=== PATIENT | female | born 1980 | race Caucasian/White ===

== ENCOUNTER 2016-10-17 14:48 | Emergency (ER) | payer OTHER ==
[2016-10-17 14:53] VITALS: RESP 20
--- NOTE | 2016-10-17 15:21 | ED ---
Chest Pain HPI - General Chief Complaint: Chest Pain Stated Complaint: Chest Pain/Anxiety Time Seen by Provider: 10/17/16 15:05 Source: patient Mode of arrival: wheelchair Limitations: no limitations - History of Present Illness Initial Comments: Patient is a 35-year-old female presenting with chest pain. Patient states symptoms started 4 days ago. Points to anterior chest wall. Patient states is intermittent. Patient denies any radiation to arm, back, neck. Patient isn't taking anything for the pain. Patient states she has a heavy caseload at work. Patient has an outpatient follow-up with her PCP already for concerns of anxiety/depression. Patient denies diabetes, hypertension, hyperlipidemia, tobacco abuse, early family history of heart disease. Patient denies OCP use, recent travel/surgeries/trauma, cancer, history of DVT/PE. Patient has any fever, chills, stress breath, nausea, vomiting, diarrhea, dysuria. - Related Data Allergies Allergy/AdvReac Type Severity Reaction Status Date / Time No Known Allergies Allergy Verified 10/17/16 14:54 Review of Systems ROS Statement: Those systems with pertinent positive or pertinent negative responses have been documented in the HPI. Constitutional: No fever and no chills. HENT: No congestion, no rhinorrhea and no sore throat. Eyes: No discharge and no redness. Respiratory: No cough and no shortness of breath. Cardiovascular:+chest pain and no palpitations. Gastrointestinal: No nausea, no vomiting, no abdominal pain and no diarrhea. Genitourinary: No dysuria and no hematuria. Musculoskeletal: No back pain and no arthralgias. Skin: No pallor and no rash. Neurological: No dizziness and No headaches. ROS Other: All systems not noted in ROS Statement are negative. EKG Findings - EKG Comments: EKG Findings:: Rate 88. NSR. No ST-T wave changes. NE internal normal . QRS interval normal. QTc duration normal. Past Medical History Additional Past Medical History / Comment(s): overactive bladder, History of Any Multi-Drug Resistant Organisms: None Reported Past Surgical History: No Surgical Hx Reported Past Psychological History: Anxiety, Depression Smoking Status: Never smoker Past Alcohol Use History: None Reported Past Drug Use History: None Reported General Exam - General Exam Comments Initial Comments: Constitutional: Patient appears well-developed and well-nourished. No distress. Head: Normocephalic and atraumatic. Eyes: Conjunctivae and EOM are normal. Right eye exhibits no discharge. Left eye exhibits no discharge. No scleral icterus. Neck: Normal range of motion. Neck supple. Cardiovascular: Normal rate and regular rhythm. No murmur heard. No reproducible chest wall tenderness. Pulmonary/Chest: Effort normal and breath sounds normal. No respiratory distress. No wheezes. Abdominal: Soft. No distension. There is no tenderness. There is no rebound and no guarding. Musculoskeletal: Normal range of motion. No edema or tenderness. Neurological: Patient alert and oriented to person, place, and time. Skin: Skin is warm and dry. Not diaphoretic. Nursing notes and vitals reviewed. Limitations: no limitations Course Vital Signs 10/17/16 10/17/16 14:50 16:39 Temperature 97.5 F L 98.2 F Pulse Rate 100 71 Respiratory 20 20 Rate Blood Pressure 123/60 102/56 O2 Sat by Pulse 98 98 Oximetry - Reevaluation(s) Reevaluation #1: 10/17/16 16:56 Patient resting comfortably in bed. EKG and chest x-ray unremarkable and shared with patient. Patient agreeable to following up with her PCP. Chest Pain MDM - MDM Patient is a 35-year-old female without cardiac risk factors. PERC negative. EKG and chest x-ray unremarkable. Patient can follow up with her PCP for further management of her anxiety/depression. Patient denies suicidal, homicidal, or hallucinations. Prior to discharge, patient was resting comfortably in bed. Course of stay improved. Denies pain. Discussed physical exam and diagnostic tests with patient. Questions answered and patient is agreeable to discharge with close follow up with Primary Care Physician. Instructed to return to Emergency Department if symptoms worsen. Disposition Clinical Impression: Chest pain Disposition: HOME SELF-CARE Condition: Good Instructions: Chest Pain (ED), Stress (ED) Referrals: Hue Xie MD [Primary Care Provider] - 1-2 days
[2016-10-17 15:44] LABS: Appearance,Urine Cloudy (Clear); Bilirubin,Urine Negative (Negative); Glucose,Urine (UA) Negative (Negative); Ketones,Urine Negative (Negative); Leukocyte Esterase,Urine Negative (Negative); Mucus,Urine Occasional /hpf; Nitrite,Urine Negative (Negative); PH, Urine 6.5 (5.0-8.0); Particle Count 5755; Protein,Urine 1+ (Negative); RBC,Urine 11 /hpf (0-5); Specific Gravity,Urine 1.029 (1.001-1.035); Squamous Epithelial Cell,Urine 5 /hpf (0-4); UA Billing (MACRO vs. MICRO) MICRO; Urobilinogen,Urine <2.0 mg/dL (<2.0)
--- NOTE | 2016-10-17 16:11 | XR ---
EXAMINATION TYPE: XR chest 2V DATE OF EXAM: 10/17/2016 3:58 PM COMPARISON: NONE HISTORY: Chest pain TECHNIQUE: Frontal and lateral views of the chest are obtained. FINDINGS: Heart and mediastinum are normal. Lungs are clear. Diaphragm is normal. Bony thorax is int act. IMPRESSION: Normal chest.
[2016-10-17 16:39] VITALS: BP 102/56; PULSE 71; TEMP 98.2
== END 2016-10-17 16:56 | disposition home or self-care (01) ==
LOC: EC 14:48
DX: R07.89 Other chest pain (principal); F43.9 Reaction to severe stress, unspecified; F41.9 Anxiety disorder, unspecified; F32.9 Major depressive disorder, single episode, unspecified
CPT/HCPCS: 71020; 81001; 81025; 93005; 99285

== ENCOUNTER 2017-03-15 13:52 | Emergency (ER) | payer OTHER ==
[2017-03-15] MEDS ORDERED: SODIUM CHLORIDE 0.9% 1,000 ML IV ONE (16:05)
[2017-03-15 16:42] LABS: Appearance,Urine Cloudy (Clear); Bacteria,Urine Rare /hpf; Bilirubin,Urine Negative (Negative); Glucose,Urine (UA) Negative (Negative); Ketones,Urine Negative (Negative); Leukocyte Esterase,Urine Negative (Negative); Mucus,Urine Rare /hpf; Nitrite,Urine Negative (Negative); PH, Urine 5.5 (5.0-8.0); Particle Count 4451; Protein,Urine Negative (Negative); Specific Gravity,Urine 1.015 (1.001-1.035); Squamous Epithelial Cell,Urine 4 /hpf (0-4); UA Billing (MACRO vs. MICRO) MICRO; Urobilinogen,Urine <2.0 mg/dL (<2.0)
[2017-03-15 16:45] LABS: Basophils % (A) 0 %; CH 31.6; CHCM 35.1; Eosinophils # (A) 0.1 k/uL (0-0.7); Eosinophils % (A) 1 %; HCT 39.4 % (34.0-46.0); HDW 2.65; HGB 13.8 gm/dL (11.4-16.0); Luc # (Auto) 0.12; Luc % (Auto) 2; Lymphocytes # (A) 2.1 k/uL (1.0-4.8); Lymphocytes % (A) 37 %; MCH 31.5 pg (25.0-35.0); MCHC 34.9 g/dL (31.0-37.0); MCV 90.4 fL (80.0-100.0); Monocytes # (A) 0.3 k/uL (0-1.0); Monocytes % (A) 5 %; Neutrophils # (A) 3.1 k/uL (1.3-7.7); Neutrophils % (A) 54 %; RBC 4.36 m/uL (3.80-5.40); RDW 13.2 % (11.5-15.5); WBC 5.6 k/uL (3.8-10.6); WBC (Perox) 5.08
[2017-03-15 16:54] LABS: ALT 19 U/L (9-52); AST 22 U/L (14-36); Alkaline Phosphatase 66 U/L (38-126); Anion Gap 9 mmol/L; Blood Urea Nitrogen 15 mg/dL (7-17); Calcium 9.1 mg/dL (8.4-10.2); Carbon Dioxide 28 mmol/L (22-30); Chloride 103 mmol/L (98-107); Glucose 81 mg/dL (74-99); Non-African American GFR(MDRD) >60 (>60 ml/min/1.73 sqM); Sodium 140 mmol/L (137-145); Total Bilirubin 0.7 mg/dL (0.2-1.3); Total Protein 7.8 g/dL (6.3-8.2)
--- NOTE | 2017-03-15 17:03 | XR ---
EXAMINATION TYPE: XR chest 2V DATE OF EXAM: 03/15/2017 COMPARISON: Chest x-ray October 17, 2016 HISTORY: Chest pain per order. Pain with shortness of breath and extremity numbness and tingling afte r new vitamin ingestion per patient. TECHNIQUE: Frontal and lateral views of the chest are obtained. FINDINGS: There is no focal air space opacity, pleural effusion, or pneumothorax seen. The cardiac silhouette size is within normal limits. The osseous structures are intact. IMPRESSION: No acute cardiopulmonary process currently.
--- NOTE | 2017-03-15 17:12 | ED ---
General Adult HPI - General Chief complaint: Chest Pain Stated complaint: Tingling in arm/Legs Time Seen by Provider: 03/15/17 15:36 Source: patient Mode of arrival: ambulatory Limitations: no limitations - History of Present Illness Initial comments: Patient is a 36-year-old female with a past medical history of depression and overactive bladder who presents to the emergency department for evaluation of tingling sensation that began in her hands and feet yesterday and now is throughout her entire body. Patient reports that one week ago she discontinued her usual vitamin supplementations and begin using a food vitamin known is that Juice + orchard, garden and dexter blend capsule vitamin, which her friend report she began using and had significant improvement in her GI symptoms as well as depression. Patient reports in the first week of using the supplements she did feel that her overactive bladder was better controlled and she felt less depression. However she reports that yesterday she began feeling tingling sensation in her hands and feet. She was unsure if this was related to the supplements, however she reports she felt better in the afternoon. She reports that today she began experiencing the tingling sensation in her hands and feet but it moved throughout her entire body, that time she felt that her chest was tight and she was having trouble breathing. She was unsure if this was related to acid reflux so she ate lunch which did seem to improve the symptoms however she was advised by her supervisor [employer] worked that she should come to the emergency department for further evaluation. Patient reports she is taking 2 capsules of each of the supplements. One being orchard, one being dexter and one being garden. She received the supplements from her friend who had been taking them, she reports that she had ordered her own bottles but they have not arrived in the malleus of her friend had given her the supplements. She is not read the bottle is unsure of the ingredients and is uncertain if she may have an ALLERGY to any of them. She doesn't have any known food ALLERGIES. Patient denies any cardiac history. She denies any history of blood clots or family history of blood clot. She is not on oral contraceptives and she is not a smoker. She denies any exertional chest pain or shortness of breath. - Related Data Home Medications Medication Instructions Recorded Confirmed "Juice Plus" 1 cap PO DIRECTED 03/15/17 03/15/17 Cetirizine HCl [Zyrtec] 10 mg PO DAILY 03/15/17 03/15/17 Cholecalciferol [Vitamin D3] 1,000 unit PO DAILY 03/15/17 03/15/17 Oxybutynin ER [Ditropan Xl] 15 mg PO DAILY 03/15/17 03/15/17 Vitamin B Complex 1 cap PO DAILY 03/15/17 03/15/17 Allergies Allergy/AdvReac Type Severity Reaction Status Date / Time No Known Allergies Allergy Verified 03/15/17 15:19 Review of Systems ROS Statement: Those systems with pertinent positive or pertinent negative responses have been documented in the HPI. ROS Other: All systems not noted in ROS Statement are negative. Constitutional: Denies: fever, chills Eyes: Denies: vision change ENT: Denies: throat pain Respiratory: Reports: dyspnea. Denies: wheezes Cardiovascular: Denies: chest pain, dyspnea on exertion, orthopnea, edema, syncope Endocrine: Denies: fatigue Gastrointestinal: Denies: abdominal pain, nausea, vomiting, diarrhea, constipation Genitourinary: Reports: urgency. Denies: dysuria, hematuria Musculoskeletal: Denies: back pain Skin: Denies: rash Neurological: Reports: paresthesias. Denies: headache, weakness Psychiatric: Reports: anxiety, depression Hematological/Lymphatic: Denies: easy bleeding, easy bruising Past Medical History Additional Past Medical History / Comment(s): overactive bladder, History of Any Multi-Drug Resistant Organisms: None Reported Past Surgical History: No Surgical Hx Reported Past Psychological History: Anxiety, Depression Smoking Status: Never smoker Past Alcohol Use History: None Reported Past Drug Use History: None Reported General Exam Limitations: no limitations General appearance: alert, in no apparent distress Head exam: Present: atraumatic, normocephalic, normal inspection Eye exam: Present: normal appearance, PERRL, EOMI. Absent: scleral icterus, conjunctival injection, periorbital swelling ENT exam: Present: normal exam, mucous membranes moist Neck exam: Present: normal inspection. Absent: tenderness, meningismus, lymphadenopathy Respiratory exam: Present: normal lung sounds bilaterally. Absent: respiratory distress, wheezes, rales, rhonchi, stridor, chest wall tenderness, accessory muscle use, decreased breath sounds, prolonged expiratory Cardiovascular Exam: Present: regular rate, normal rhythm, normal heart sounds. Absent: bradycardia, tachycardia, irregular rhythm, systolic murmur, diastolic murmur GI/Abdominal exam: Present: soft, normal bowel sounds. Absent: distended, tenderness, guarding, rebound, rigid Rectal exam: Present: deferred Extremities exam: Present: normal inspection, full ROM, normal capillary refill. Absent: tenderness, pedal edema, joint swelling, calf tenderness Back exam: Present: normal inspection Neurological exam: Present: alert, oriented X3, CN II-XII intact. Absent: altered Psychiatric exam: Present: depressed, anxious. Absent: manic, homicidal ideation, suicidal ideation Skin exam: Present: warm, dry, intact, normal color. Absent: rash, erythema, urticaria, vesicles, petechiae, pallor Course Vital Signs 03/15/17 14:07 Temperature 98.3 F Pulse Rate 83 Respiratory 20 Rate Blood Pressure 125/58 O2 Sat by Pulse 100 Oximetry - Reevaluation(s) Reevaluation #1: Patient reevaluated, resting comfortably in bed. She states that she is feeling significantly better and would like to be discharged she has a social event at 7 PM tonight. Patient also expresses concern that her medical advanced directive have not been uploaded to this [facility]'s documentation, she is a [employer] and once it clear that she would not receive blood products in any situation. 03/15/17 17:08 Medical Decision Making - Medical Decision Making She was seen and evaluated, vital signs were reviewed - no tachycardia, PERC negative EKG done in triage was reviewed Physical exam no acute findings, no concern for wheezing or acute ALLERGIC reaction She reports significant improvement in symptoms since arrival in the ER Labs, chest x-ray ordered CBC and BMP with no acute abnormalities D-dimer not elevated Results were discussed with the patient who expresses relief. I advised patient that it is possible she is having an adverse reaction to the supplements she has began taking. I advised her that it would be safest for her to discontinue use of all 3 supplements and if she has resolution of her symptoms after discontinued use she should consider restarting the supplements one at a time so that she can identify which if any of them is causing the symptoms. Patient expressed understanding of this and agreement with the plan to discontinue supplementation and reintroduce shortly. And also states that she has had sensitivities to almost all medications she has been on in the past , she reports that her primary care physician has had 2 change her antidepressants multiple times due to adverse effects. - Lab Data Result diagrams: 03/15/17 16:30 03/15/17 16:30 Lab Results 03/15/17 03/15/17 03/15/17 Range/Units 16:20 16:20 16:30 WBC 5.6 (3.8-10.6) k/uL RBC 4.36 (3.80-5.40) m/uL Hgb 13.8 (11.4-16.0) gm/dL Hct 39.4 (34.0-46.0) % MCV 90.4 (80.0-100.0) fL MCH 31.5 (25.0-35.0) pg MCHC 34.9 (31.0-37.0) g/dL RDW 13.2 (11.5-15.5) % Plt Count 234 (150-450) k/uL Neutrophils % 54 % Lymphocytes % 37 % Monocytes % 5 % Eosinophils % 1 % Basophils % 0 % Neutrophils # 3.1 (1.3-7.7) k/uL Lymphocytes # 2.1 (1.0-4.8) k/uL Monocytes # 0.3 (0-1.0) k/uL Eosinophils # 0.1 (0-0.7) k/uL Basophils # 0.0 (0-0.2) k/uL Sodium (137-145) mmol/L Potassium (3.5-5.1) mmol/L Chloride (98-107) mmol/L Carbon Dioxide (22-30) mmol/L Anion Gap mmol/L BUN (7-17) mg/dL Creatinine (0.52-1.04) mg/dL Est GFR (MDRD) Af Amer (>60 ml/min/1.73 sqM) Est GFR (MDRD) Non-Af (>60 ml/min/1.73 sqM) Glucose (74-99) mg/dL Calcium (8.4-10.2) mg/dL Total Bilirubin (0.2-1.3) mg/dL AST (14-36) U/L ALT (9-52) U/L Alkaline Phosphatase (38-126) U/L Total Protein (6.3-8.2) g/dL Albumin (3.5-5.0) g/dL Urine Color Yellow Urine Appearance Cloudy H (Clear) Urine pH 5.5 (5.0-8.0) Ur Specific [place] 1.015 (1.001-1.035) Urine Protein Negative (Negative) Urine Glucose (UA) Negative (Negative) Urine Ketones Negative (Negative) Urine Blood Negative (Negative) Urine Nitrite Negative (Negative) Urine Bilirubin Negative (Negative) Urine Urobilinogen <2.0 (<2.0) mg/dL Ur Leukocyte Esterase Negative (Negative) Ur Squamous Epith Cells 4 (0-4) /hpf Urine Bacteria Rare H (None) /hpf Urine Mucus Rare H (None) /hpf Urine HCG, Qual Not Detected (Not Detectd) 03/15/17 Range/Units 16:30 WBC (3.8-10.6) k/uL RBC (3.80-5.40) m/uL Hgb (11.4-16.0) gm/dL Hct (34.0-46.0) % MCV (80.0-100.0) fL MCH (25.0-35.0) pg MCHC (31.0-37.0) g/dL RDW (11.5-15.5) % Plt Count (150-450) k/uL Neutrophils % % Lymphocytes % % Monocytes % % Eosinophils % % Basophils % % Neutrophils # (1.3-7.7) k/uL Lymphocytes # (1.0-4.8) k/uL Monocytes # (0-1.0) k/uL Eosinophils # (0-0.7) k/uL Basophils # (0-0.2) k/uL Sodium 140 (137-145) mmol/L Potassium 4.0 (3.5-5.1) mmol/L Chloride 103 (98-107) mmol/L Carbon Dioxide 28 (22-30) mmol/L Anion Gap 9 mmol/L BUN 15 (7-17) mg/dL Creatinine 0.79 (0.52-1.04) mg/dL Est GFR (MDRD) Af Amer >60 (>60 ml/min/1.73 sqM) Est GFR (MDRD) Non-Af >60 (>60 ml/min/1.73 sqM) Glucose 81 (74-99) mg/dL Calcium 9.1 (8.4-10.2) mg/dL Total Bilirubin 0.7 (0.2-1.3) mg/dL AST 22 (14-36) U/L ALT 19 (9-52) U/L Alkaline Phosphatase 66 (38-126) U/L Total Protein 7.8 (6.3-8.2) g/dL Albumin 4.6 (3.5-5.0) g/dL Urine Color Urine Appearance (Clear) Urine pH (5.0-8.0) Ur Specific [place] (1.001-1.035) Urine Protein (Negative) Urine Glucose (UA) (Negative) Urine Ketones (Negative) Urine Blood (Negative) Urine Nitrite (Negative) Urine Bilirubin (Negative) Urine Urobilinogen (<2.0) mg/dL Ur Leukocyte Esterase (Negative) Ur Squamous Epith Cells (0-4) /hpf Urine Bacteria (None) /hpf Urine Mucus (None) /hpf Urine HCG, Qual (Not Detectd) Disposition Clinical Impression: Atypical chest pain, Medication reaction Disposition: HOME SELF-CARE Instructions: Food Allergy (ED) Referrals: Hue Xie MD [Primary Care Provider] - 1-2 days
[2017-03-15 17:51] VITALS: BP 107/55; PULSE 64; RESP 18; TEMP 98.6
== END 2017-03-15 17:51 | disposition home or self-care (01) ==
LOC: EC 13:52
DX: R07.89 Other chest pain (principal); R20.2 Paresthesia of skin; F32.9 Major depressive disorder, single episode, unspecified; T45.2X5A Adverse effect of vitamins, initial encounter; N32.81 Overactive bladder; F41.9 Anxiety disorder, unspecified; Z79.899 Other long term (current) drug therapy
CPT/HCPCS: 36415; 71020; 80053; 81001; 81025; 85025; 85379; 93005; 96360; 99285

== ENCOUNTER → 2017-03-24 | Outpatient (CLI) | payer OTHER ==
[2017-03-24 09:07] LABS: ALT 29 U/L (9-52); AST 18 U/L (14-36); Alkaline Phosphatase 57 U/L (38-126); Anion Gap 8 mmol/L; Blood Urea Nitrogen 11 mg/dL (7-17); Calcium 8.8 mg/dL (8.4-10.2); Carbon Dioxide 27 mmol/L (22-30); Chloride 106 mmol/L (98-107); Glucose 91 mg/dL (74-99); Magnesium 2.1 mg/dL (1.6-2.3); Non-African American GFR(MDRD) >60 (>60 ml/min/1.73 sqM); Potassium 4.1 mmol/L (3.5-5.1); Sodium 141 mmol/L (137-145); Total Bilirubin 1.4 mg/dL (0.2-1.3)
== END | disposition home or self-care (01) ==
LOC: LABWHC1 08:18
PROVIDERS: ATTEND Family Medicine
DX: E66.3 Overweight (principal)
CPT/HCPCS: 36415; 80053; 83735

== ENCOUNTER 2018-06-02 14:00 | Inpatient (IN) | payer BC, OTHER ==
[2018-06-02] MEDS ORDERED: cefTRIAXone 2,000 MG in SODIUM CHLORIDE 0.9% 100 ML IVPB STA (14:22)
[2018-06-02] MEDS ORDERED: SODIUM CHLORIDE 0.9% 1,000 ML IV ONE (14:22)
--- NOTE | 2018-06-02 14:26 | ED ---
Skin/Abscess/FB HPI - General Chief complaint: Skin/Abscess/Foreign Body Stated complaint: poss bee sting Time Seen by Provider: 06/02/18 14:06 Source: patient Mode of arrival: ambulatory Limitations: no limitations - History of Present Illness Initial comments: 37-year-old female who denies past medical history, patient denies any past medical history of MRSA infection present today for chief complaint of left buttock abscess incised illness with failed outpatient treatment. Patient states that she was sent by her primary care physician spoke with Dr. Tran over the phone. Patient was bit by an insect she states about 1.5 weeks ago then diagnosed on Wednesday with cellulitis and abscess of the left buttock at the area of puncture in the skin from insect bite. She is not sure what type of insect it was. She was started on Bactrim q12h. Pt states that she did not fill prescription on Wednesday at the time of appointment, and began taking the medication starting Wednesday as directed. Pt took only 1 dose yesterday because she states she forgot when she got home from work. Pt states that the redness has been increasing and the area is draining fluid/blood, she she saw Dr. Xie for wound check today, he felt infection was worsening and instructed pt to present to the ED for IV antibiotic therapy. She denies any fever, chills, rigors, night sweats, body aches, chest pain, shortness of breath, diarrhea, constipation, back pain, abdominal pain, nausea or vomiting, numbness or tingling, dysuria or hematuria, headaches or visual changes, or any other complaints. - Related Data Home Medications Medication Instructions Recorded Confirmed "Juice Plus" 1 cap PO DIRECTED 03/15/17 06/02/18 Cetirizine HCl [Zyrtec] 10 mg PO DAILY 03/15/17 06/02/18 Cholecalciferol [Vitamin D3] 1,000 unit PO DAILY 03/15/17 06/02/18 Oxybutynin ER [Ditropan Xl] 15 mg PO DAILY 03/15/17 06/02/18 Vitamin B Complex 1 cap PO DAILY 03/15/17 06/02/18 Allergies Allergy/AdvReac Type Severity Reaction Status Date / Time No Known Allergies Allergy Verified 06/02/18 14:11 Review of Systems ROS Statement: Those systems with pertinent positive or pertinent negative responses have been documented in the HPI. ROS Other: All systems not noted in ROS Statement are negative. Constitutional: Denies: fever, chills, night sweats Eyes: Denies: vision change ENT: Denies: ear pain, throat pain Respiratory: Denies: cough, dyspnea, wheezes, hemoptysis, stridor Cardiovascular: Denies: chest pain, palpitations, dyspnea on exertion Endocrine: Denies: fatigue Gastrointestinal: Denies: abdominal pain, nausea, vomiting, diarrhea, constipation Genitourinary: Denies: frequency, hematuria Musculoskeletal: Denies: back pain Skin: Reports: as per HPI, lesions (break in skin with surrounding induration and erythema) Neurological: Denies: headache, weakness, numbness, paresthesias, confusion, abnormal gait Past Medical History Additional Past Medical History / Comment(s): overactive bladder, History of Any Multi-Drug Resistant Organisms: None Reported Past Surgical History: No Surgical Hx Reported Past Psychological History: Anxiety, Depression Smoking Status: Never smoker Past Alcohol Use History: None Reported Past Drug Use History: None Reported General Exam - General Exam Comments Initial Comments: General: The patient is awake and alert, in no distress, and does not appear acutely ill. Eye: Pupils are equal, round and reactive to light, extra-ocular movements are intact. No nystagmus. There is normal conjunctiva bilaterally. No signs of icterus. Ears, nose, mouth and throat: There are moist mucous membranes and no oral lesions. Neck: The neck is supple, there is no tenderness or JVD. Cardiovascular: There is a regular rate and rhythm. No murmur, rub or gallop is appreciated. Respiratory: Lungs are clear to auscultation, respirations are non-labored, breath sounds are equal. No wheezes, stridor, rales, or rhonchi. Gastrointestinal: Soft, non-distended, non-tender abdomen without masses or organomegaly noted. There is no rebound or guarding present. No CVA tenderness. Bowel sounds are unremarkable. Musculoskeletal: Normal ROM, no tenderness. Strength 5/5. Sensation intact. Pulses equal bilaterally 2+. Neurological: A&O x 3. CN II-XII intact, There are no obvious motor or sensory deficits. Coordination appears grossly intact. Speech is normal. Skin: Skin is warm and dry and no rashes or lesions are noted. Psychiatric: Cooperative, appropriate mood & affect, normal judgment. Limitations: no limitations Course Vital Signs 06/02/18 06/02/18 14:07 15:19 Temperature 98.8 F 98.8 F Pulse Rate 89 88 Respiratory 18 18 Rate Blood Pressure 135/74 132/77 O2 Sat by Pulse 98 98 Oximetry Medical Decision Making - Medical Decision Making 37yo dx with cellulitis and abscess of the left buttock sent by PCP for failed outpatient treatment with Bactrim x2 days. Pt complains of worsening erythema warmth and tenderness. Pt denies any symptoms of systemic spread of infection. VS stable upon arrive pt HR 89 bpm, temperature 98.8F, blood pressure 135 /74. CBC, Lactic- WNL. Blood cx and wound cx obtained after needle aspiration of area of induration-both pending. Pt given 2g rocephin IVPB as well as 0.9% NS 1, 000 mL. Case discussed with Dr. Tran, pt primary care physician had wanted admission for IV antibiotics for failed outpt therapy for cellulitis with abscess. Ashley accepted admission to observation for intravenous antibiotic therapy after discussing case with Dr. Tran. Pt appears nontoxic, no signs sepsis at this time. Pt transferred to observation in stable condition. - Lab Data Result diagrams: 06/02/18 14:30 06/02/18 14:30 Lab Results 06/02/18 06/02/18 06/02/18 Range/Units 14:30 14:30 14:30 WBC 8.5 (3.8-10.6) k/uL RBC 4.04 (3.80-5.40) m/uL Hgb 12.1 (11.4-16.0) gm/dL Hct 37.1 (34.0-46.0) % MCV 91.9 (80.0-100.0) fL MCH 30.1 (25.0-35.0) pg MCHC 32.7 (31.0-37.0) g/dL RDW 13.2 (11.5-15.5) % Plt Count 235 (150-450) k/uL Neutrophils % 81 % Lymphocytes % 12 % Monocytes % 5 % Eosinophils % 1 % Basophils % 0 % Neutrophils # 6.9 (1.3-7.7) k/uL Lymphocytes # 1.1 (1.0-4.8) k/uL Monocytes # 0.4 (0-1.0) k/uL Eosinophils # 0.1 (0-0.7) k/uL Basophils # 0.0 (0-0.2) k/uL Sodium 141 (137-145) mmol/L Potassium 4.2 (3.5-5.1) mmol/L Chloride 107 (98-107) mmol/L Carbon Dioxide 24 (22-30) mmol/L Anion Gap 10 mmol/L BUN 15 (7-17) mg/dL Creatinine 0.72 (0.52-1.04) mg/dL Est GFR (CKD-EPI)AfAm >90 (>60 ml/min/1.73 sqM) Est GFR (CKD-EPI)NonAf >90 (>60 ml/min/1.73 sqM) Glucose 86 (74-99) mg/dL Plasma Lactic Acid [place] 0.9 (0.7-2.0) mmol/L Calcium 8.9 (8.4-10.2) mg/dL Total Bilirubin 1.1 (0.2-1.3) mg/dL AST 20 (14-36) U/L ALT 23 (9-52) U/L Alkaline Phosphatase 60 (38-126) U/L Total Protein 7.2 (6.3-8.2) g/dL Albumin 4.3 (3.5-5.0) g/dL Disposition Clinical Impression: Failure of outpatient treatment, Cellulitis and abscess of buttock Disposition: ADMITTED IP TO THIS [facility] Condition: Good Is patient prescribed a controlled substance at d/c from ED?: No Time of Disposition: 14:26 Decision to Admit Reason: Admit from EC Decision Date: 06/02/18 Decision Time: 14:26
[2018-06-02 14:49] LABS: Basophils % (A) 0 %; Eosinophils # (A) 0.1 k/uL (0-0.7); Eosinophils % (A) 1 %; HCT 37.1 % (34.0-46.0); HGB 12.1 gm/dL (11.4-16.0); Lymphocytes # (A) 1.1 k/uL (1.0-4.8); Lymphocytes % (A) 12 %; MCH 30.1 pg (25.0-35.0); MCHC 32.7 g/dL (31.0-37.0); MCV 91.9 fL (80.0-100.0); Mean Platelet Volume 7.7; Monocytes # (A) 0.4 k/uL (0-1.0); Monocytes % (A) 5 %; Neutrophils # (A) 6.9 k/uL (1.3-7.7); Neutrophils % (A) 81 %; Platelet Count 235 k/uL (150-450); RBC 4.04 m/uL (3.80-5.40); RDW 13.2 % (11.5-15.5); WBC 8.5 k/uL (3.8-10.6)
[2018-06-02] MEDS ORDERED: NALOXONE 0.4 MG/ML 1 ML VIAL IV PRN (14:55)
[2018-06-02] MEDS ORDERED: ONDANSETRON 4 MG/2 ML VIAL IVP PRN (14:55)
[2018-06-02 15:02] LABS: ALT 23 U/L (9-52); AST 20 U/L (14-36); Albumin 4.3 g/dL (3.5-5.0); Alkaline Phosphatase 60 U/L (38-126); Anion Gap 10 mmol/L; Blood Urea Nitrogen 15 mg/dL (7-17); Calcium 8.9 mg/dL (8.4-10.2); Carbon Dioxide 24 mmol/L (22-30); Chloride 107 mmol/L (98-107); Glucose 86 mg/dL (74-99); Potassium 4.2 mmol/L (3.5-5.1); Sodium 141 mmol/L (137-145); Total Bilirubin 1.1 mg/dL (0.2-1.3); Total Protein 7.2 g/dL (6.3-8.2)
[2018-06-02] MEDS: SODIUM CHLORIDE 0.9% 1,000 ML IV SCH (16:04)
[2018-06-02] MEDS: HYDROcodone/APAP 5-325MG 1 EACH TAB PO PRN (20:15)
[2018-06-02] MEDS: IBUPROFEN 400 MG TAB PO PRN (22:12)
[2018-06-03] MEDS: IBUPROFEN 400 MG TAB PO PRN ×2 (07:34→12:36)
[2018-06-03] MEDS: OXYBUTYNIN 15 MG TAB.ER.24 PO SCH (09:15)
[2018-06-03] MEDS: MULTIVITAMINS, THERA 1 EACH TAB PO SCH (09:15)
[2018-06-03] MEDS: LORATADINE 10 MG TAB PO SCH (09:15)
[2018-06-03] MEDS: CHOLECALCIFEROL 1,000 UNIT TAB PO SCH (09:15)
[2018-06-03] MEDS: FLUTICASONE 50MCG/SPRAY NASAL 16GM EA NOSTRIL SCH (09:15)
[2018-06-03 10:07] LABS: Basophils % (A) 0 %; Eosinophils # (A) 0.1 k/uL (0-0.7); Eosinophils % (A) 1 %; HCT 34.7 % (34.0-46.0); HGB 11.6 gm/dL (11.4-16.0); Lymphocytes # (A) 1.2 k/uL (1.0-4.8); Lymphocytes % (A) 17 %; MCH 30.2 pg (25.0-35.0); MCHC 33.4 g/dL (31.0-37.0); MCV 90.3 fL (80.0-100.0); Mean Platelet Volume 7.7; Monocytes # (A) 0.4 k/uL (0-1.0); Monocytes % (A) 6 %; Neutrophils % (A) 74 %; Platelet Count 230 k/uL (150-450); RBC 3.84 m/uL (3.80-5.40); WBC 6.8 k/uL (3.8-10.6)
[2018-06-03 10:24] LABS: ALT 17 U/L (9-52); AST 18 U/L (14-36); Albumin 3.7 g/dL (3.5-5.0); Alkaline Phosphatase 50 U/L (38-126); Anion Gap 9 mmol/L; Blood Urea Nitrogen 17 mg/dL (7-17); Calcium 8.6 mg/dL (8.4-10.2); Carbon Dioxide 24 mmol/L (22-30); Chloride 106 mmol/L (98-107); Glucose 83 mg/dL (74-99); Potassium 4.5 mmol/L (3.5-5.1); Sodium 139 mmol/L (137-145); Total Protein 6.5 g/dL (6.3-8.2)
--- NOTE | 2018-06-03 11:31 | P.HPIM ---
History of Present Illness H&P Date: 06/03/18 This is a 37-year-old female patient of Dr. Xie. Patient presented to the emergency department with complaints of left buttock abscess that has failed outpatient treatment. Patient states approximately about 1-1/2 week ago patient was outside mowing the lawn when she felt a sting to her right buttock. Patient went to her PCP and was treated with Bactrim at the site has been becoming increasingly painful and drainage has increased over the past week. Patient returned her PCP. PCP directed her to come to emergency room due to increasing infection. Patient has known past medical history of overactive bladder, anxiety and depression. Patient denies any fevers. Patient denies any ideations chest pain or shortness of breath. Patient denies diarrhea nausea or vomiting. Patient denies any urinary burning or frequency. Patient remains afebrile. White blood cells within normal limits. Blood and wound cultures have been ordered. Patient started on Rocephin IV. Dr. Rose consulted for infectious disease. 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 has a pt advocate form on file but stated she needs to change and update it.at time of this admit pt stated "she wishes no blood or blood products which is different from her form"" Smoking Status: Former smoker - Past Family History Mother Additional Family Medical History / Comment(s): schizophrenia, parkinsons Sister(s) Additional Family Medical History / Comment(s): overacative bladder Brother(s) Additional Family Medical History / Comment(s): bipolar Father Family Medical History: No Reported History Medications and Allergies Home Medications Medication Instructions Recorded Confirmed Type Cetirizine HCl [Zyrtec] 10 mg PO DAILY 03/15/17 06/02/18 History Cholecalciferol [Vitamin D3] 1,000 unit PO DAILY 03/15/17 06/02/18 History Oxybutynin ER [Ditropan Xl] 30 mg PO DAILY 03/15/17 06/02/18 History Vitamin B Complex 1 cap PO DAILY 03/15/17 06/02/18 History Fluticasone Nasal [place] [Flonase 1 spray EA NOSTRIL DAILY 06/02/18 06/02/18 History Nasal [place]] Multivitamins, Thera [Multivitamin 1 tab PO DAILY 06/02/18 06/02/18 History (formulary)] Sulfamethox-Tmp 800-160Mg [Bactrim 1 tab PO BID 06/02/18 06/02/18 History DS 800-160 mg] Allergies Allergy/AdvReac Type Severity Reaction Status Date / Time cat dander Allergy Unknown Verified 06/02/18 16:16 ragweed pollen Allergy Unknown Verified 06/02/18 16:16 Physical Exam Vitals: Vital Signs Temp Pulse Pulse Resp BP BP BP 06/03/18 07:58 71 16 06/03/18 07:35 98.1 F 71 18 94/60 06/03/18 04:00 98.0 F 71 16 98/64 06/02/18 23:44 16 06/02/18 23:43 99.5 F 88 16 93/56 06/02/18 20:00 16 06/02/18 15:47 97.9 F 97 16 100/64 06/02/18 15:19 98.8 F 88 18 132/77 06/02/18 14:07 98.8 F 89 18 135/74 Pulse Ox 06/03/18 07:58 06/03/18 07:35 98 06/03/18 04:00 99 06/02/18 23:44 06/02/18 23:43 97 06/02/18 20:00 06/02/18 15:47 100 06/02/18 15:19 98 06/02/18 14:07 98 Intake and Output 06/02/18 06/03/18 06/03/18 22:59 06:59 14:59 Intake Total 420 236 Balance 420 236 Intake: Oral 420 236 Other: Voiding Method Toilet Toilet Toilet # Voids 1 3 1 Weight 68.5 kg Head normocephalic Neck supple Lungs clear to auscultation bilaterally no wheezing or crackles Heart regular rate and rhythm S1-S2, no rub or gallop Abdomen is soft nontender nondistended positive bowel sounds no hepatosplenomegaly Extremities no edema Neuro alert and orientated to 3 Right lower buttock erythematous draining wound. Results CBC & Chem 7: 06/03/18 09:40 06/03/18 09:40 Labs: Microbiology - Last 24 Hours (Table) 06/02/18 14:48 Gram Stain - Preliminary Buttock Wound Culture - Preliminary Assessment and Plan Assessment: 1. Cellulitis to right buttock related to bug bite. Blood and wound cultures ordered. Patient remains afebrile. White blood cell within normal limits. Patient currently on Rocephin for IV antibiotics. Dr. Rose consulted for infectious disease 2. History of overactive bladder. Continue ditropan 3. History of anxiety and depression 4. Seasonal ALLERGIES. Continue home medications DVT prophylaxis Lovenox. GI prophylaxis Pepcid Time with Patient: Greater than 30 (Greater than 60% of the total time spent in counseling and coordination of care. I performed an examination of the patient and discussed their management with the Nurse Practitioner. I have reviewed the Nurse Practitioner's notes and agree with the documented findings and plan of care)
[2018-06-03] MEDS ORDERED: VANCOMYCIN IV PER PHARMACY 1 EACH MISC MISCELLANE PRN (12:57)
[2018-06-03] MEDS ORDERED: VANCOMYCIN 1,250 MG in SODIUM CHLORIDE 0.9% 250 ML IVPB ONE (14:00)
[2018-06-03] MEDS: SODIUM CHLORIDE 0.9% 1,000 ML IV SCH ×2 (16:38→16:39)
--- NOTE | 2018-06-03 20:14 | CONS ---
CONSULTATION DATE OF SERVICE: 06/03/2018. REASON FOR CONSULTATION: Left gluteal abscess. HISTORY OF PRESENT ILLNESS: The patient is a 37-year-old female who apparently noticed about a week and a half ago to have some area of irritation to the left gluteal area. The patient states that she was mowing the lawn and did have the jeans on, but more likely an insect bite. That area started getting more swollen, red and painful and she went to see her primary care physician. The patient has been started on Bactrim DS 1 b.i.d. which the patient has taken for about 3 days. However, the patient did not have any improvement of the area becoming more swollen, red and painful. Pain described as throbbing almost 10/10 and severe. The patient denies any high-grade fevers, rigors and chills. With these symptoms, the patient did present back to her primary care physician who advised the patient to go to the ER. The patient was evaluated by the ER physician with attempted drainage of this abscess. The patient has been started on Rocephin and admitted to the hospital. Infectious Disease was consulted for further recommendation regarding antibiotic therapy. The patient has been in the hospital. No high-grade fever has been noticed. The patient's white count has been normal as well. The left buttock wound culture currently pending as well blood culture. REVIEW OF SYSTEMS: CONSTITUTIONAL: Positive for weakness. Denies high-grade fever. EYES: No complaint. ENT: No complaint. RESPIRATORY: No complaint. CARDIOVASCULAR: No complaint. GENITOURINARY: No complaint. GASTROINTESTINAL: No complaint. MUSCULOSKELETAL: No complaint. INTEGUMENTARY: As per HPI. PSYCHOLOGICAL: No complaint. ENDOCRINE: No complaint. NEUROLOGIC: No complaint. PAST MEDICAL HISTORY: Overactive bladder and depression. No history of MRSA infection. PAST SURGICAL HISTORY: Cryosurgery for HPV. SOCIAL HISTORY: Remote history of smoking. No drinking or drug use. FAMILY HISTORY: Mother with history of parkinsonism. Mother history of bipolar disorder. ALLERGIES: No known drug allergies. MEDICATION: Currently include the patient is on Tylenol, [place], vitamin D3, Lovenox, Pepcid, Flonase, Motrin, Claritin, Theragran, Narcan, Zofran, Ditropan and Rocephin 1 g daily. EXAMINATION: Blood pressure is 94/60 with a pulse of 71, temperature 98.1. She is 98% on room air. General description is a middle aged female, lying in bed in no distress. No tachypnea or accessory muscle of respiration use. HEENT: Shows no pallor or scleral icterus. Oral mucosa is dry. No pharyngeal erythema or thrush. NECK: Trachea central. There is no thyromegaly. LUNGS: Unlabored breathing. Clear to auscultation anteriorly. No wheeze or crackle. HEART: S1, S2 regular rate and rhythm. ABDOMEN: Soft, no tenderness. No guarding, no rigidity. EXTREMITIES: No edema of the feet. SKIN: Examination of the left gluteal area the presence of the manager of case management did show an area of induration with some swelling and redness. No purulence was noted though tender to touch. NEUROLOGICAL: Patient is awake, alert, oriented x3. Mood and affect normal. LABS: Hemoglobin is 11.8, white count 6.8 with a BUN of 17, creatinine 0.80. The blood culture as well as the left gluteal abscess culture currently pending. DIAGNOSTIC IMPRESSION AND PLAN: Patient with left gluteal abscess and cellulitis that has failed to respond to the outpatient oral Bactrim DS therapy. Concern is likely for an MRSA infection and more likely superficial abscess, less likely a deep abscess in view of the absence of systemic symptoms. PLAN: 1. Discontinue the Rocephin. 2. Vancomycin, pharmacy to dose target of 15. 3. Patient advised warm compression in this area and let it drain spontaneously. 4. If the patient did not show any improvement the next 24 hours she may benefit from a surgical drainage of the same. 5. We will follow up on clinical condition as well as cultures to further adjust medication if needed. Thank you for this consultation. Will follow this patient along with you. MMODL / IJN: [id number] /
[2018-06-04] MEDS: VANCOMYCIN 1,250 MG in SODIUM CHLORIDE 0.9% 250 ML IVPB SCH ×3 (00:11→20:04)
[2018-06-04] MEDS: HYDROcodone/APAP 5-325MG 1 EACH TAB PO PRN ×2 (00:12→04:53)
[2018-06-04 07:57] LABS: Basophils % (A) 1 %; Eosinophils # (A) 0.1 k/uL (0-0.7); Eosinophils % (A) 1 %; HCT 34.2 % (34.0-46.0); Lymphocytes # (A) 0.9 k/uL (1.0-4.8); Lymphocytes % (A) 19 %; MCH 29.8 pg (25.0-35.0); MCHC 32.3 g/dL (31.0-37.0); MCV 92.2 fL (80.0-100.0); Mean Platelet Volume 7.1; Monocytes # (A) 0.3 k/uL (0-1.0); Monocytes % (A) 6 %; Neutrophils # (A) 3.3 k/uL (1.3-7.7); Neutrophils % (A) 72 %; Platelet Count 229 k/uL (150-450); RBC 3.71 m/uL (3.80-5.40); WBC 4.6 k/uL (3.8-10.6)
[2018-06-04 08:16] LABS: ALT 17 U/L (9-52); AST 17 U/L (14-36); Albumin 3.3 g/dL (3.5-5.0); Alkaline Phosphatase 45 U/L (38-126); Anion Gap 5 mmol/L; Blood Urea Nitrogen 13 mg/dL (7-17); Calcium 8.4 mg/dL (8.4-10.2); Carbon Dioxide 27 mmol/L (22-30); Chloride 106 mmol/L (98-107); Glucose 123 mg/dL (74-99); Sodium 138 mmol/L (137-145); Total Bilirubin 0.6 mg/dL (0.2-1.3); Total Protein 6.1 g/dL (6.3-8.2)
[2018-06-04] MEDS: MULTIVITAMINS, THERA 1 EACH TAB PO SCH (09:51)
[2018-06-04] MEDS: LORATADINE 10 MG TAB PO SCH (09:51)
[2018-06-04] MEDS: FAMOTIDINE 20 MG TAB PO SCH (09:51)
[2018-06-04] MEDS: OXYBUTYNIN 15 MG TAB.ER.24 PO SCH (09:51)
[2018-06-04] MEDS: CHOLECALCIFEROL 1,000 UNIT TAB PO SCH (09:51)
[2018-06-04] MEDS: SODIUM CHLORIDE 0.9% 1,000 ML IV SCH (09:52)
[2018-06-04] MEDS: ENOXAPARIN 40 MG/0.4 ML SYRINGE SQ SCH (09:53)
[2018-06-04] MEDS: FLUTICASONE 50MCG/SPRAY NASAL 16GM EA NOSTRIL SCH (10:54)
[2018-06-04] MEDS: ACETAMINOPHEN TAB 325 MG TAB PO PRN ×2 (13:24→23:35)
--- NOTE | 2018-06-04 14:52 | P.PN ---
Subjective Progress Note Date: 06/04/18 This is a 37-year-old female patient of Dr. Xie. Patient presented to the emergency department with complaints of left buttock abscess that has failed outpatient treatment. Patient states approximately about 1-1/2 week ago patient was outside mowing the lawn when she felt a sting to her right buttock. Patient went to her PCP and was treated with Bactrim at the site has been becoming increasingly painful and drainage has increased over the past week. Patient returned her PCP. PCP directed her to come to emergency room due to increasing infection. Patient has known past medical history of overactive bladder, anxiety and depression. Patient denies any fevers. Patient denies any ideations chest pain or shortness of breath. Patient denies diarrhea nausea or vomiting. Patient denies any urinary burning or frequency. Patient remains afebrile. White blood cells within normal limits. Blood and wound cultures have been ordered. Patient started on Rocephin IV. Dr. Rose consulted for infectious disease. On 2017 patient was seen and examined she is alert and oriented 3 pain is reasonably well controlled otherwise she denies any complaints she was seen by Dr. Balderrama infectious disease today and he advised to switch antibiotics to IV vancomycin, he advised to proceed with surgical intervention if not improving in the next 24 hours. Objective - Vital Signs Vital signs: Vital Signs Temp 98.3 F 06/04/18 06:21 Pulse 72 06/04/18 06:21 Resp 16 06/04/18 06:21 BP 87/53 06/04/18 06:21 Pulse Ox 100 06/04/18 06:21 Intake & Output 06/03/18 06/04/18 06/04/18 18:59 06:59 18:59 Intake Total 472 600 Balance 472 600 Intake: Oral 472 600 Other: Voiding Method Toilet Toilet # Voids 4 2 1 - Exam Head normocephalic and atraumatic Neck supple no JVD no goiter Lungs clear to auscultation bilaterally no wheezing or crackles Heart regular rate and rhythm S1-S2, no rub or gallop Abdomen is soft nontender nondistended positive bowel sounds no hepatosplenomegaly Extremities no edema no cyanosis or clubbing Neuro alert and orientated to 3 Right lower buttock erythematous draining wound. - Labs CBC & Chem 7: 06/04/18 07:06 06/04/18 07:06 Labs: Abnormal Lab Results - Last 24 Hours (Table) 06/04/18 06/04/18 Range/Units 07:06 07:06 RBC 3.71 L (3.80-5.40) m/uL Hgb 11.0 L (11.4-16.0) gm/dL Lymphocytes # 0.9 L (1.0-4.8) k/uL Glucose 123 H (74-99) mg/dL Total Protein 6.1 L (6.3-8.2) g/dL Albumin 3.3 L (3.5-5.0) g/dL Microbiology - Last 24 Hours (Table) 06/02/18 14:48 Gram Stain - Preliminary Buttock Wound Culture - Preliminary Presumptive Staph aureus 06/02/18 14:30 Blood Culture - Preliminary Blood No Growth after 24 hours Assessment and Plan Plan: 1. Cellulitis to right buttock related to bug bite. Blood and wound cultures ordered. Patient remains afebrile. White blood cell within normal limits. Patient currently on Rocephin for IV antibiotics. Dr. Rose consulted for infectious disease 2. History of overactive bladder. Continue ditropan 3. History of anxiety and depression 4. Seasonal ALLERGIES. Continue home medications DVT prophylaxis Lovenox. GI prophylaxis Pepcid
[2018-06-04] MEDS: IBUPROFEN 400 MG TAB PO PRN (20:09)
[2018-06-04] MEDS: ceFAZolin IN SWFI 2 GM/20 ML SYRINGE IVP SCH (23:36)
--- NOTE | 2018-06-05 04:58 | PN ---
PROGRESS NOTE DATE OF SERVICE: 06/04/2018. REASON FOR FOLLOWUP: Left gluteal abscess and cellulitis. INTERVAL HISTORY: The patient is afebrile. She is breathing comfortably. Denies having any chest pain, shortness of breath or cough. No abdominal pain or worsening pain to the left gluteal area. It still has slight drainage from it. EXAMINATION: Blood pressure 96/52 with a pulse of 90, temperature 98.1. She is 100% on room air. General description is a middle aged female lying in bed in no distress. Respiratory system unlabored breathing. Clear to auscultation anteriorly. Heart S1, S2. Regular rate and rhythm. Abdomen soft, no tenderness. Left gluteal area did have slight drainage, mostly blood-stained. No purulence. LABS: White count is normal. Wound culture has been finalized as MSSA. DIAGNOSTIC IMPRESSION AND PLAN: Patient with Methicillin-sensitive Staphylococcus aureus left gluteal abscess with attempted drainage at the ER. If the cultures finalize as MSSA, antibiotic will be switched over to cefazolin 2 g q.8h. All compression to the area and discontinue the vancomycin. Continue with supportive care. MMODL / IJN: [id number] /
[2018-06-05] MEDS: ceFAZolin IN SWFI 2 GM/20 ML SYRINGE IVP SCH ×3 (07:24→23:53)
[2018-06-05] MEDS: MULTIVITAMINS, THERA 1 EACH TAB PO SCH (07:26)
[2018-06-05] MEDS: FAMOTIDINE 20 MG TAB PO SCH (07:26)
[2018-06-05] MEDS: OXYBUTYNIN 15 MG TAB.ER.24 PO SCH (07:26)
[2018-06-05] MEDS: FLUTICASONE 50MCG/SPRAY NASAL 16GM EA NOSTRIL SCH (07:27)
[2018-06-05] MEDS: LORATADINE 10 MG TAB PO SCH (07:27)
[2018-06-05] MEDS: ENOXAPARIN 40 MG/0.4 ML SYRINGE SQ SCH (07:27)
[2018-06-05] MEDS: CHOLECALCIFEROL 1,000 UNIT TAB PO SCH (07:27)
[2018-06-05] MEDS: IBUPROFEN 400 MG TAB PO PRN ×2 (07:31→12:38)
[2018-06-05] MEDS ORDERED: VANCOMYCIN TROUGH DUE 1 EACH MISC MISCELLANE ONE (08:00)
[2018-06-05 08:07] LABS: Basophils % (A) 1 %; Eosinophils # (A) 0.1 k/uL (0-0.7); Eosinophils % (A) 2 %; HCT 32.4 % (34.0-46.0); HGB 10.8 gm/dL (11.4-16.0); Lymphocytes % (A) 31 %; MCH 29.9 pg (25.0-35.0); MCHC 33.1 g/dL (31.0-37.0); MCV 90.3 fL (80.0-100.0); Mean Platelet Volume 7.9; Monocytes # (A) 0.2 k/uL (0-1.0); Monocytes % (A) 5 %; Neutrophils # (A) 1.8 k/uL (1.3-7.7); Neutrophils % (A) 59 %; Platelet Count 222 k/uL (150-450); RBC 3.59 m/uL (3.80-5.40); RDW 12.9 % (11.5-15.5); WBC 3.1 k/uL (3.8-10.6)
[2018-06-05 08:19] LABS: ALT 27 U/L (9-52); AST 20 U/L (14-36); Albumin 3.4 g/dL (3.5-5.0); Alkaline Phosphatase 48 U/L (38-126); Anion Gap 6 mmol/L; Blood Urea Nitrogen 10 mg/dL (7-17); Calcium 8.6 mg/dL (8.4-10.2); Carbon Dioxide 27 mmol/L (22-30); Chloride 107 mmol/L (98-107); Glucose 94 mg/dL (74-99); Potassium 4.2 mmol/L (3.5-5.1); Sodium 140 mmol/L (137-145); Total Bilirubin 0.6 mg/dL (0.2-1.3); Total Protein 6.2 g/dL (6.3-8.2)
--- NOTE | 2018-06-05 10:58 | P.PN ---
Subjective Progress Note Date: 06/05/18 This is a 37-year-old female patient of Dr. Xie. Patient presented to the emergency department with complaints of left buttock abscess that has failed outpatient treatment. Patient states approximately about 1-1/2 week ago patient was outside mowing the lawn when she felt a sting to her right buttock. Patient went to her PCP and was treated with Bactrim at the site has been becoming increasingly painful and drainage has increased over the past week. Patient returned her PCP. PCP directed her to come to emergency room due to increasing infection. Patient has known past medical history of overactive bladder, anxiety and depression. Patient denies any fevers. Patient denies any ideations chest pain or shortness of breath. Patient denies diarrhea nausea or vomiting. Patient denies any urinary burning or frequency. Patient remains afebrile. White blood cells within normal limits. Blood and wound cultures have been ordered. Patient started on Rocephin IV. Dr. Rose consulted for infectious disease. On 2017 patient was seen and examined she is alert and oriented 3 pain is reasonably well controlled otherwise she denies any complaints she was seen by Dr. Balderrama infectious disease today and he advised to switch antibiotics to IV vancomycin, he advised to proceed with surgical intervention if not improving in the next 24 hours. On 06/05/2018 patient is alert and oriented in no apparent distress she is complaining of anxiety she is complaining of vaginal itching otherwise she denies any complaints at this time. Culture was positive for methicillin sensitive Staphylococcus aureus and Dr. Balderrama switched antibiotic to cefazolin. Objective - Vital Signs Vital signs: Vital Signs Temp 98.1 F 06/05/18 05:48 Pulse 71 06/05/18 05:48 Resp 16 06/05/18 05:48 BP 103/55 06/05/18 05:48 Pulse Ox 100 06/05/18 05:48 Intake & Output 06/04/18 06/05/18 06/05/18 18:59 06:59 18:59 Intake Total 1000 400 Balance 1000 400 Intake: Oral 1000 400 Other: Voiding Method Toilet Toilet Toilet # Voids 2 2 # Bowel Movements 1 - Exam Head normocephalic and atraumatic Neck supple no JVD no goiter Lungs clear to auscultation bilaterally no wheezing or crackles Heart regular rate and rhythm S1-S2, no rub or gallop Abdomen is soft nontender nondistended positive bowel sounds no hepatosplenomegaly Extremities no edema no cyanosis or clubbing Neuro alert and orientated to 3 Right lower buttock erythematous draining wound. - Labs CBC & Chem 7: 06/05/18 07:35 06/05/18 07:35 Labs: Abnormal Lab Results - Last 24 Hours (Table) 06/05/18 06/05/18 Range/Units 07:35 07:35 WBC 3.1 L (3.8-10.6) k/uL RBC 3.59 L (3.80-5.40) m/uL Hgb 10.8 L (11.4-16.0) gm/dL Hct 32.4 L (34.0-46.0) % Total Protein 6.2 L (6.3-8.2) g/dL Albumin 3.4 L (3.5-5.0) g/dL Microbiology - Last 24 Hours (Table) 06/02/18 14:48 Gram Stain - Final Buttock Wound Culture - Final Staphylococcus aureus 06/02/18 14:30 Blood Culture - Preliminary Blood No Growth after 48 hours Assessment and Plan Plan: 1. Cellulitis to right buttock related to bug bite. Blood and wound cultures ordered. Patient remains afebrile. White blood cell within normal limits. Patient currently on Rocephin for IV antibiotics. Dr. Rose consulted for infectious disease 2. History of overactive bladder. Continue ditropan 3. History of anxiety and depression 4. Seasonal ALLERGIES. Continue home medications 5. Anxiety will give Xanax when necessary low-dose 6. Vaginal itching possible yeast infection due to antibiotic use will give Diflucan DVT prophylaxis Lovenox. GI prophylaxis Pepcid
[2018-06-05] MEDS: ALPRAZolam 0.25 MG TAB PO PRN ×2 (12:08→22:44)
[2018-06-05] MEDS: FLUCONAZOLE 150 MG TAB PO SCH (12:08)
--- NOTE | 2018-06-05 19:50 | PN ---
PROGRESS NOTE DATE OF SERVICE: 06/05/2018. REASON FOR FOLLOWUP: Left gluteal emesis abscess. INTERVAL HISTORY: The patient is currently afebrile. She is breathing comfortably. Denies any chest pain, shortness of breath or cough. No abdominal pain. Pain to the gluteal area has decreased in intensity and no further drainage. EXAMINATION: Blood pressure is 97/61 with a pulse of 73, temperature 98.8. She is 100% on room air. General description is a middle-aged female up in the bed in no distress. Respiratory system unlabored breathing. Clear to auscultation anteriorly. Heart S1, S2. Regular rate and rhythm. Abdomen is soft. No tenderness. The left gluteal wound has decreased in swelling and redness and no significant duration of foul smelling drainage. LABS: Hemoglobin is 10.8, white count 3.1. BUN of 10, creatinine 0.66. The culture finalized MSSA. Blood culture has been negative. DIAGNOSTIC IMPRESSION AND PLAN: Patient with left gluteal abscess status post drainage in the ER. The patient seemed to have shown clinical improvement. Plan at this time is to keep the patient on IV cefazolin over the weekend with the plan to finish therapy with oral Keflex 500 mg q.6 hours for another 10 days with close outpatient followup. Continue supportive care. MMODL / IJN: [id number] /
[2018-06-05] MEDS: ACETAMINOPHEN TAB 325 MG TAB PO PRN (22:44)
[2018-06-06] MEDS: ENOXAPARIN 40 MG/0.4 ML SYRINGE SQ SCH (07:23)
[2018-06-06] MEDS: MULTIVITAMINS, THERA 1 EACH TAB PO SCH (07:23)
[2018-06-06] MEDS: FLUCONAZOLE 150 MG TAB PO SCH (07:23)
[2018-06-06] MEDS: LORATADINE 10 MG TAB PO SCH (07:23)
[2018-06-06] MEDS: OXYBUTYNIN 15 MG TAB.ER.24 PO SCH (07:23)
[2018-06-06] MEDS: FAMOTIDINE 20 MG TAB PO SCH (07:23)
[2018-06-06] MEDS: ceFAZolin IN SWFI 2 GM/20 ML SYRINGE IVP SCH (07:24)
[2018-06-06] MEDS: CHOLECALCIFEROL 1,000 UNIT TAB PO SCH (07:24)
[2018-06-06] MEDS: FLUTICASONE 50MCG/SPRAY NASAL 16GM EA NOSTRIL SCH (07:25)
[2018-06-06 07:27] VITALS: RESP 16
[2018-06-06] MEDS: ACETAMINOPHEN TAB 325 MG TAB PO PRN (07:31)
[2018-06-06 09:21] LABS: Basophils % (A) 0 %; Eosinophils # (A) 0.1 k/uL (0-0.7); Eosinophils % (A) 2 %; HCT 34.6 % (34.0-46.0); HGB 11.5 gm/dL (11.4-16.0); Lymphocytes # (A) 1.1 k/uL (1.0-4.8); Lymphocytes % (A) 32 %; MCH 30.1 pg (25.0-35.0); MCHC 33.3 g/dL (31.0-37.0); MCV 90.2 fL (80.0-100.0); Mean Platelet Volume 7.5; Monocytes # (A) 0.2 k/uL (0-1.0); Monocytes % (A) 4 %; Neutrophils % (A) 60 %; Platelet Count 291 k/uL (150-450); RBC 3.84 m/uL (3.80-5.40); WBC 3.4 k/uL (3.8-10.6)
[2018-06-06 09:48] LABS: Albumin 3.9 g/dL (3.5-5.0); Glucose 83 mg/dL (74-99); Total Protein 6.8 g/dL (6.3-8.2)
[2018-06-06 09:49] LABS: ALT 20 U/L (9-52); AST 19 U/L (14-36); Alkaline Phosphatase 54 U/L (38-126); Anion Gap 9 mmol/L; Blood Urea Nitrogen 11 mg/dL (7-17); Calcium 8.8 mg/dL (8.4-10.2); Carbon Dioxide 26 mmol/L (22-30); Chloride 108 mmol/L (98-107); Potassium 4.3 mmol/L (3.5-5.1); Sodium 143 mmol/L (137-145); Total Bilirubin 0.4 mg/dL (0.2-1.3)
[2018-06-06 11:37] VITALS: TEMP 97.3
--- NOTE | 2018-06-06 12:49 | PN ---
PROGRESS NOTE DATE OF SERVICE: 06/06/2018 REASON FOR FOLLOWUP: Left gluteal MSSA abscess and cellulitis. INTERVAL HISTORY: The patient is currently afebrile. She is breathing comfortably. Denies having any chest pain, shortness of breath. No cough, no abdominal pain, or any worsening pain in her left gluteal area. PHYSICAL EXAMINATION: Blood pressure is 94-47 with a pulse of 75, temperature is 97.2, she is 98% on room air. General description is a middle aged female, lying in bed in no distress. RESPIRATORY SYSTEM: Unlabored breathing, clear to auscultation anteriorly. HEART: S1, S2. Regular rate and rhythm. ABDOMEN: Soft, no tenderness. Left gluteal swelling, redness and induration has significant decreased, no drainage. LABS: White count of 3.4, BUN of 11, creatinine 0.75. DIAGNOSTIC IMPRESSION AND PLAN: Patient with methicillin-sensitive Staphylococcus aureus left gluteal abscess and cellulitis, status post drainage. Patient has some clinical improvement. PLAN: Finish therapy with oral Keflex for 7 to 10 days with close outpatient followup. A prescription was sent to the Pharmacy. Continue supportive care. MMODL / IJN: [id number] /
--- NOTE | 2018-06-06 13:15 | P.DS ---
Providers Date of admission: 06/03/18 08:51 Expected date of discharge: 06/06/18 Attending physician: Amy aRmirez Consults: 06/03/18 10:49 Consult Physician Routine Consulting Provider: Ellen Balderrama Consult Reason/Comments: failed OP cellulits with abcess Do you want consulting provider notified?: Yes Primary care physician: Hue Xie Hospital Course: Discharge diagnosis 1. Cellulitis to right buttock related to bug bite. Blood and wound cultures ordered. Patient remains afebrile. White blood cell within normal limits. Patient currently on Rocephin for IV antibiotics. Blood culture showing no growth. Wound culture showing Staphylococcus aureus. Discussed case with infectious disease after Sayed. Patient to be DC'd home on Keflex 500 mg by mouth every 6 hours for 10 days for 10 days 2. History of overactive bladder. Continue ditropan 3. History of anxiety and depression 4. Seasonal ALLERGIES. Continue home medications 5. Anxiety will give Xanax when necessary low-dose. Patient to follow-up closely with PCP 6. Vaginal itching possible yeast infection due to antibiotic use will give Diflucan. Patient will be DC'd home on Diflucan 100 mg by mouth for 7 days. Patient to follow-up closely PCP Hospital course This is a 37-year-old female patient of Dr. Xie. Patient presented to the emergency department with complaints of left buttock abscess that has failed outpatient treatment. Patient states approximately about 1-1/2 week ago patient was outside mowing the lawn when she felt a sting to her right buttock. Patient went to her PCP and was treated with Bactrim at the site has been becoming increasingly painful and drainage has increased over the past week. Patient returned her PCP. PCP directed her to come to emergency room due to increasing infection. Patient has known past medical history of overactive bladder, anxiety and depression. Patient denies any fevers. Patient denies any ideations chest pain or shortness of breath. Patient denies diarrhea nausea or vomiting. Patient denies any urinary burning or frequency. Patient remains afebrile. White blood cells within normal limits. Blood and wound cultures have been ordered. Patient started on Rocephin IV. Dr. Rose consulted for infectious disease. On 2017 patient was seen and examined she is alert and oriented 3 pain is reasonably well controlled otherwise she denies any complaints she was seen by Dr. Balderrama infectious disease today and he advised to switch antibiotics to IV vancomycin, he advised to proceed with surgical intervention if not improving in the next 24 hours. On 06/05/2018 patient is alert and oriented in no apparent distress she is complaining of anxiety she is complaining of vaginal itching otherwise she denies any complaints at this time. Culture was positive for methicillin sensitive Staphylococcus aureus and Dr. Balderrama switched antibiotic to cefazolin. On 06/06/2018 patient is alert and oriented 3. Patient has been up walking around with no complaints. Patient has been cleared for discharge from infectious disease standpoint. Patient denies chest pain or shortness of breath. Patient denies nausea vomiting or diarrhea. Patient denies any urinary symptoms. Patient will be DC'd on by mouth Keflex and Diflucan. Patient follow-up closely with primary care provider and infectious disease outpatient. Patient's systolic BP is in the 90's. Patient asymptomatic. Patient states that this Blood pressure is normal for her. I performed an examination of the patient and discussed their management with the Nurse Practitioner. I have reviewed the Nurse Practitioner's notes and agree with the documented findings and plan of care Patient Condition at Discharge: Stable Plan - Discharge Summary Discharge Rx Participant: No New Discharge Prescriptions: New Cephalexin [Keflex] 500 mg PO Q6HR #40 cap Fluconazole [Diflucan] 100 mg PO DAILY 7 Days #7 tab Continue Cholecalciferol [Vitamin D3] 1,000 unit PO DAILY Vitamin B Complex 1 cap PO DAILY Oxybutynin ER [Ditropan Xl] 30 mg PO DAILY Cetirizine HCl [Zyrtec] 10 mg PO DAILY Multivitamins, Thera [Multivitamin (formulary)] 1 tab PO DAILY Fluticasone Nasal [place] [Flonase Nasal [place]] 1 spray EA NOSTRIL DAILY Discontinued Sulfamethox-Tmp 800-160Mg [Bactrim DS 800-160 mg] 1 tab PO BID Discharge Medication List Cetirizine HCl [Zyrtec] 10 mg PO DAILY 03/15/17 [History] Cholecalciferol [Vitamin D3] 1,000 unit PO DAILY 03/15/17 [History] Oxybutynin ER [Ditropan Xl] 30 mg PO DAILY 03/15/17 [History] Vitamin B Complex 1 cap PO DAILY 03/15/17 [History] Fluticasone Nasal [place] [Flonase Nasal [place]] 1 spray EA NOSTRIL DAILY 06/02/18 [History] Multivitamins, Thera [Multivitamin (formulary)] 1 tab PO DAILY 06/02/18 [History ] Cephalexin [Keflex] 500 mg PO Q6HR #40 cap 06/05/18 [Rx] Fluconazole [Diflucan] 100 mg PO DAILY 7 Days #7 tab 06/06/18 [Rx] Follow up Appointment(s)/Referral(s): Hue Xie MD [Primary Care Provider] - 06/09/18 3:15 pm (appointment previously made) Ellen Balderrama MD [STAFF PHYSICIAN] - 06/16/18 9:45 am Patient Instructions/Handouts: Abscess (ED) Activity/Diet/Wound Care/Special Instructions: Diet regular Activity as tolerated Discharge Disposition: HOME SELF-CARE
[2018-06-06 13:31] VITALS: BP 99/55; PULSE 75
== END 2018-06-06 13:48 | disposition home or self-care (01) | DRG 603 ==
LOC: EC 14:00 → 3OBS 14:54 → OBSVTOIN 06-03 08:51 → 4MS4W 06-03 17:00
PROVIDERS: ADMIT Internal Medicine; ATTEND Internal Medicine
DX: L03.317 Cellulitis of buttock (principal); B95.61 Methicillin susceptible Staphylococcus aureus infection as the cause of diseases classified elsewhere; F41.9 Anxiety disorder, unspecified; J45.909 Unspecified asthma, uncomplicated; L02.31 Cutaneous abscess of buttock; N32.81 Overactive bladder; W57.XXXA Bitten or stung by nonvenomous insect and other nonvenomous arthropods, initial encounter; Z81.8 Family history of other mental and behavioral disorders; Z82.0 Family history of epilepsy and other diseases of the nervous system; Z87.891 Personal history of nicotine dependence; B37.3 Candidiasis of vulva and vagina; T36.95XA Adverse effect of unspecified systemic antibiotic, initial encounter; Z79.899 Other long term (current) drug therapy
CPT/HCPCS: 36415; 80053; 83605; 85025; 87040; 87070; 87077; 87186; 87205; 96365; 99284

== ENCOUNTER 2019-05-12 23:54 | Emergency (ER) | payer BC, OTHER ==
[2019-05-13] MEDS ORDERED: MECLIZINE 12.5 MG TAB PO STA (00:22)
[2019-05-13] MEDS ORDERED: SODIUM CHLORIDE 0.9% 1,000 ML IV STA (00:22)
[2019-05-13] MEDS ORDERED: ONDANSETRON 4 MG/2 ML VIAL IVP STA (00:22)
--- NOTE | 2019-05-13 00:28 | ED ---
General Adult HPI - General Chief complaint: Urogenital Stated complaint: UTI/Earache Time Seen by Provider: 05/13/19 00:10 Source: patient Mode of arrival: ambulatory Limitations: no limitations - History of Present Illness Initial comments: 38-year-old female patient presents to the emergency department today for evaluation of nausea, vomiting, and dysuria. Patient states that for the last couple days she has felt nauseous. States she started dry heaving this morning. States she has dry heaves several times are up-to-date. States she is unable to keep down any food or fluids. Patient states that she did have some burning with urination earlier today. Denies urinary frequency. Denies fever or chills. States that she has been having left ear pain for the last month. States with that she is experiencing ringing and buzzing in the ear. States that she has had some dizziness intermittently with this. States she did see her primary care physician and was told it was most likely due to her seasonal ALLERGIES. Patient denies any recent rash, shortness breath, chest pain, abdominal pain, diarrhea, constipation, back pain, numbness, tingling, dizziness, weakness, headache, visual changes, or any other complaints. - Related Data Home Medications Medication Instructions Recorded Confirmed Cetirizine HCl [Zyrtec] 10 mg PO DAILY 03/15/17 06/02/18 Cholecalciferol [Vitamin D3 (25 1,000 unit PO DAILY 03/15/17 06/02/18 Mcg = 1000 Iu)] Oxybutynin ER [Ditropan Xl] 30 mg PO DAILY 03/15/17 06/02/18 Vitamin B Complex 1 cap PO DAILY 03/15/17 06/02/18 Fluticasone Nasal [place] [Flonase 1 spray EA NOSTRIL DAILY 06/02/18 06/02/18 Nasal [place]] Multivitamins, Thera [Multivitamin 1 tab PO DAILY 06/02/18 06/02/18 (formulary)] Previous Rx's Medication Instructions Recorded Cephalexin [Keflex] 500 mg PO Q6HR #40 cap 06/05/18 Fluconazole [Diflucan] 100 mg PO DAILY 7 Days #7 tab 06/06/18 Cephalexin [Keflex] 500 mg PO BID #14 cap 05/13/19 Allergies Allergy/AdvReac Type Severity Reaction Status Date / Time cat dander Allergy Unknown Verified 05/13/19 00:03 ragweed pollen Allergy Unknown Verified 05/13/19 00:03 Review of Systems ROS Statement: Those systems with pertinent positive or pertinent negative responses have been documented in the HPI. ROS Other: All systems not noted in ROS Statement are negative. Past Medical History Past Medical History: Asthma Additional Past Medical History / Comment(s): overactive bladder, and,depression,"allergy induced asthma-uses inhalors,"heartburn", hpv-had cryo sx History of Any Multi-Drug Resistant Organisms: None Reported Past Surgical History: No Surgical Hx Reported Additional Past Surgical History / Comment(s): cryo sx for hpv Additional Past Anesthesia/Blood Transfusion Reaction / Comment(s): pt is jehova witness. has a pt advocate form on file but stated she needs to change and update it.at time of this admit pt stated "she wishes no blood or blood products which is different from her form"" Past Psychological History: Anxiety, Depression Smoking Status: Former smoker Past Alcohol Use History: None Reported Past Drug Use History: None Reported - Past Family History Mother Additional Family Medical History / Comment(s): schizophrenia, parkinsons Sister(s) Additional Family Medical History / Comment(s): overacative bladder Brother(s) Additional Family Medical History / Comment(s): bipolar Father Family Medical History: No Reported History General Exam Limitations: no limitations General appearance: alert, in no apparent distress, other (This is a well- developed, well-nourished adult female patient in no acute distress. Vital signs upon presentation are temperature 97.6F, pulse 105, respirations 16, blood pressure 113/63, pulse ox 99% on room air.) Eye exam: Present: normal appearance, PERRL, EOMI. Absent: scleral icterus, conjunctival injection, periorbital swelling Respiratory exam: Present: normal lung sounds bilaterally. Absent: respiratory distress, wheezes, rales, rhonchi, stridor Cardiovascular Exam: Present: regular rate, normal rhythm, normal heart sounds. Absent: systolic murmur, diastolic murmur, rubs, gallop, clicks GI/Abdominal exam: Present: soft, normal bowel sounds. Absent: distended, tenderness, guarding, rebound, rigid Neurological exam: Present: alert, oriented X3, CN II-XII intact Psychiatric exam: Present: normal affect, normal mood Skin exam: Present: warm, dry, intact, normal color. Absent: rash Course Vital Signs 05/12/19 05/13/19 23:57 02:45 Temperature 97.6 F 98.6 F Pulse Rate 105 H 82 Respiratory 16 17 Rate Blood Pressure 113/63 113/61 O2 Sat by Pulse 99 100 Oximetry Medical Decision Making - Medical Decision Making 38-year-old female patient presents to the emergency department today for evaluation of vomiting and dysuria. Patient is also reporting left ear pain and dizziness. Physical examination is unremarkable. Labs reviewed and are unremarkable. Urinalysis does show evidence of infection. We sent for culture. She was started on antibiotics. She'll be discharged to follow-up with her primary care physician for recheck in 1-2 days. Return parameters discussed in detail. She verbalizes understanding and agrees with this plan. - Lab Data Result diagrams: 05/13/19 00:28 05/13/19 00:28 Lab Results 05/13/19 05/13/19 05/13/19 Range/Units 00:28 00:28 00:30 WBC 6.0 (3.8-10.6) k/uL RBC 4.13 (3.80-5.40) m/uL Hgb 12.3 (11.4-16.0) gm/dL Hct 36.3 (34.0-46.0) % MCV 88.0 (80.0-100.0) fL MCH 29.8 (25.0-35.0) pg MCHC 33.9 (31.0-37.0) g/dL RDW 13.2 (11.5-15.5) % Plt Count 232 (150-450) k/uL Neutrophils % 76 % Lymphocytes % 17 % Monocytes % 4 % Eosinophils % 1 % Basophils % 0 % Neutrophils # 4.5 (1.3-7.7) k/uL Lymphocytes # 1.0 (1.0-4.8) k/uL Monocytes # 0.3 (0-1.0) k/uL Eosinophils # 0.1 (0-0.7) k/uL Basophils # 0.0 (0-0.2) k/uL Sodium 140 (137-145) mmol/L Potassium 3.6 (3.5-5.1) mmol/L Chloride 105 (98-107) mmol/L Carbon Dioxide 23 (22-30) mmol/L Anion Gap 12 mmol/L BUN 14 (7-17) mg/dL Creatinine 0.69 (0.52-1.04) mg/dL Est GFR (CKD-EPI)AfAm >90 (>60 ml/min/1.73 sqM) Est GFR (CKD-EPI)NonAf >90 (>60 ml/min/1.73 sqM) Glucose 119 H (74-99) mg/dL Calcium 9.4 (8.4-10.2) mg/dL Total Bilirubin 1.7 H (0.2-1.3) mg/dL AST 23 (14-36) U/L ALT 22 (9-52) U/L Alkaline Phosphatase 57 (38-126) U/L Total Protein 7.6 (6.3-8.2) g/dL Albumin 4.6 (3.5-5.0) g/dL Amylase 45 (30-110) U/L Lipase 60 (23-300) U/L Urine Color Yellow Urine Appearance Cloudy H (Clear) Urine pH 6.5 (5.0-8.0) Ur Specific [place] 1.036 H (1.001-1.035) Urine Protein 1+ H (Negative) Urine Glucose (UA) Negative (Negative) Urine Ketones 3+ H (Negative) Urine Blood Moderate H (Negative) Urine Nitrite Negative (Negative) Urine Bilirubin Negative (Negative) Urine Urobilinogen 2.0 (<2.0) mg/dL Ur Leukocyte Esterase Moderate H (Negative) Urine RBC 17 H (0-5) /hpf Urine WBC 12 H (0-5) /hpf Ur Squamous Epith Cells 17 H (0-4) /hpf Urine Bacteria Rare H (None) /hpf Urine Mucus Many H (None) /hpf Disposition Clinical Impression: Urinary tract infection, Vomiting Disposition: HOME SELF-CARE Condition: Good Instructions (If sedation given, give patient instructions): Urinary Tract Infection in Women (ED), Acute Nausea and Vomiting (ED) Additional Instructions: Take medications as directed. Follow-up through primary care physician for recheck in 1-2 days. Return to the emergency department immediately for any new, worsening, or concerning symptoms. Prescriptions: Cephalexin [Keflex] 500 mg PO BID #14 cap Is patient prescribed a controlled substance at d/c from ED?: No Referrals: Hue Xie MD [Primary Care Provider] - 1-2 days Time of Disposition: 02:08
[2019-05-13 00:42] LABS: Basophils % (A) 0 %; Eosinophils # (A) 0.1 k/uL (0-0.7); Eosinophils % (A) 1 %; HCT 36.3 % (34.0-46.0); HGB 12.3 gm/dL (11.4-16.0); Lymphocytes % (A) 17 %; MCH 29.8 pg (25.0-35.0); MCHC 33.9 g/dL (31.0-37.0); Mean Platelet Volume 7.9; Monocytes # (A) 0.3 k/uL (0-1.0); Monocytes % (A) 4 %; Neutrophils # (A) 4.5 k/uL (1.3-7.7); Neutrophils % (A) 76 %; Platelet Count 232 k/uL (150-450); RBC 4.13 m/uL (3.80-5.40); RDW 13.2 % (11.5-15.5)
[2019-05-13 00:46] LABS: Appearance,Urine Cloudy (Clear); Bacteria,Urine Rare /hpf; Bilirubin,Urine Negative (Negative); Blood,Urine Moderate (Negative); Color,Urine Yellow; Glucose,Urine (UA) Negative (Negative); Ketones,Urine 3+ (Negative); Leukocyte Esterase,Urine Moderate (Negative); Mucus,Urine Many /hpf; Nitrite,Urine Negative (Negative); PH, Urine 6.5 (5.0-8.0); Protein,Urine 1+ (Negative); RBC,Urine 17 /hpf (0-5); Specific Gravity,Urine 1.036 (1.001-1.035); Squamous Epithelial Cell,Urine 17 /hpf (0-4); WBC,Urine 12 /hpf (0-5)
[2019-05-13 00:56] LABS: ALT 22 U/L (9-52); AST 23 U/L (14-36); African American GFR (CKD) >90 (>60 ml/min/1.73 sqM); Albumin 4.6 g/dL (3.5-5.0); Alkaline Phosphatase 57 U/L (38-126); Amylase 45 U/L (30-110); Anion Gap 12 mmol/L; Blood Urea Nitrogen 14 mg/dL (7-17); Calcium 9.4 mg/dL (8.4-10.2); Carbon Dioxide 23 mmol/L (22-30); Chloride 105 mmol/L (98-107); Glucose 119 mg/dL (74-99); Potassium 3.6 mmol/L (3.5-5.1); Sodium 140 mmol/L (137-145); Total Bilirubin 1.7 mg/dL (0.2-1.3); Total Protein 7.6 g/dL (6.3-8.2)
[2019-05-13] MEDS ORDERED: SODIUM CHLORIDE 0.9% 500 ML 500 ML IV ONE (01:29)
[2019-05-13] MEDS ORDERED: cefTRIAXone IN SWFI 1,000 MG/10 ML SYRINGE IVP STA (02:07)
[2019-05-13] MEDS ORDERED: ONDANSETRON 4 MG ODT STARTER PACK 2 TAB BTL PO STA (02:08)
[2019-05-13] MEDS ORDERED: KETOROLAC 30 MG/ML 1 ML VIAL IVP STA (02:11)
[2019-05-13 02:46] VITALS: BP 113/61; PULSE 82; RESP 17; TEMP 98.6
== END 2019-05-13 02:46 | disposition home or self-care (01) ==
LOC: EC 23:54
DX: N39.0 Urinary tract infection, site not specified (principal); R11.10 Vomiting, unspecified; J45.909 Unspecified asthma, uncomplicated; H92.02 Otalgia, left ear; R42 Dizziness and giddiness; Z84.1 Family history of disorders of kidney and ureter; Z87.891 Personal history of nicotine dependence; Z91.018 Allergy to other foods; Z91.048 Other nonmedicinal substance allergy status; Z79.51 Long term (current) use of inhaled steroids; Z79.899 Other long term (current) drug therapy; Z87.448 Personal history of other diseases of urinary system; Z53.8 Procedure and treatment not carried out for other reasons
CPT/HCPCS: 36415; 80053; 82150; 83690; 85025; 81001; 87086; 99284; 96374; 96375; 96361 ×2; J2405; J0696; S0119

== ENCOUNTER → 2021-01-15 | Outpatient (CLI) | payer BC ==
--- NOTE | 2021-01-15 10:33 | MM ---
Reason for exam: screening (asymptomatic). Baseline mammogram. History: Took hormonal contraceptives beginning at age 14. Physical Findings: Nurse did not find any significant physical abnormalities on exam. MG Screening Mammo w CAD Bilateral CC and MLO view(s) were taken. The breast tissue is heterogeneously dense. This may lower the sensitivity of mammography. There is no discrete abnormality. These results were verbally communicated with the patient and result sheet given to the patient on 01/15/21. ASSESSMENT: Negative, BI-RAD 1 RECOMMENDATION: Routine screening mammogram of both breasts in 1 year.
== END | disposition home or self-care (01) ==
LOC: RADMAMWWP 09:03
PROVIDERS: ATTEND Family Medicine
DX: Z12.31 Encounter for screening mammogram for malignant neoplasm of breast (principal)
CPT/HCPCS: 77067

== ENCOUNTER → 2022-04-22 | Outpatient (CLI) | payer OTHER ==
--- NOTE | 2022-04-23 08:11 | MM ---
Reason for Exam: Screening (asymptomatic). Last mammogram was performed 1 year(s) and 3 month(s) ago. Patient History: Menarche at age 11. First Full-Term at age 22. Hormonal Contraceptives, from age 14 until age 31. Risk Values: Lizbet 5 year model risk: 0.6%. NCI Lifetime model risk: 9.8%. Prior Study Comparison: 01/15/2021 Bilateral Screening Mammogram, [facility]. Tissue Density: The breast tissue is heterogeneously dense. This may lower the sensitivity of mammography. Findings: Analyzed By CAD. There is no suspicious group of microcalcifications or new suspicious mass in either breast. Overall Assessment: Negative, BI-RAD 1 Management: Screening Mammogram of both breasts in 1 year. A clinical breast exam by your physician is recommended on an annual basis and results should be correlated with mammographic findings. Electronically signed and approved by: Suhail Mae M.D. Radiologis
== END | disposition home or self-care (01) ==
LOC: RADMAMWWP 10:16
PROVIDERS: ATTEND Family Medicine
DX: Z12.31 Encounter for screening mammogram for malignant neoplasm of breast (principal)
CPT/HCPCS: 77067

== ENCOUNTER → 2023-05-12 | Outpatient (CLI) | payer OTHER ==
--- NOTE | 2023-05-13 20:09 | MM ---
Reason for Exam: Screening (asymptomatic). Last mammogram was performed 1 year(s) and 1 month(s) ago. Patient History: Menarche at age 11. First Full-Term at age 22. Patient has history of breast feeding. Hormonal Contraceptives, from age 14 until age 31. Last menstrual period: 04/29/2023 Risk Values: Lizbet 5 year model risk: 0.6%. NCI Lifetime model risk: 9.7%. Prior Study Comparison: 01/15/2021 Bilateral Screening Mammogram, [facility]. 04/22/2022 Bilateral MG screening mammo w CAD, [facility]. Tissue Density: The breast tissue is heterogeneously dense. This may lower the sensitivity of mammography. Findings: Analyzed By CAD. On the left MLO view, an area of nodular asymmetric density posteriorly and centrally located appears more defined compared to prior exams. Otherwise, no significant change elsewhere within the breasts. Overall Assessment: Incomplete: need additional imaging evaluation, BI-RAD 0 Management: Special View Mammogram of the left breast. Including spot 3-D MLO and 3-D lateral views. Targeted left breast ultrasound if any persistent abnormality. [facility] will attempt to contact patient to return for supplemental views and ultrasound if indicated. Electronically signed and approved by: Aurea Gonzalez M.D. Radiologist
== END | disposition home or self-care (01) ==
LOC: RADMAMWWP 10:17
PROVIDERS: ATTEND Family Medicine
DX: Z12.31 Encounter for screening mammogram for malignant neoplasm of breast (principal)
CPT/HCPCS: 77067

== ENCOUNTER → 2023-05-19 | Outpatient (CLI) | payer OTHER ==
--- NOTE | 2023-05-19 10:51 | MM ---
Reason for Exam: Additional evaluation requested from abnormal screening. Last screening mammogram was performed less than 1 month ago. Patient History: Menarche at age 11. First Full-Term at age 22. Patient has history of breast feeding. Hormonal Contraceptives, from age 14 until age 31. Risk Values: Lizbet 5 year model risk: 0.6%. NCI Lifetime model risk: 9.7%. Prior Study Comparison: 01/15/2021 Bilateral Screening Mammogram, [facility]. 04/22/2022 Bilateral MG screening mammo w CAD, [facility]. 05/12/2023 Bilateral MG screening mammo w CAD, [facility]. Tissue Density: Left: The breast tissue is extremely dense which could obscure a lesion on mammography. Findings: Analyzed By CAD. Pattern appears stable. Impression no persistent suspicious nodularity is evident. Mediolateral appears unremarkable. No suspicious groups of microcalcifications, spiculated or lobular masses, architectural distortion or other secondary signs of malignancy are mammographically apparent. Overall Assessment: Benign, BI-RAD 2 Management: Screening Mammogram of both breasts in 1 year. A negative mammogram report should not preclude additional follow up of suspicious palpable abnormalities. Patient should continue monthly self breast exam. A clinical breast exam by your physician is recommended on an annual basis and results should be correlated with mammographic findings. Electronically signed and approved by: Meet Naik D.O. Radiologis
== END | disposition home or self-care (01) ==
LOC: RADMAMWWP 10:17
PROVIDERS: ATTEND Family Medicine
DX: R92.8 Other abnormal and inconclusive findings on diagnostic imaging of breast (principal)
CPT/HCPCS: 77061; 77065

== ENCOUNTER → 2024-05-15 | Outpatient (CLI) | payer BC ==
--- NOTE | 2024-05-17 13:48 | MM ---
Reason for Exam: Screening (asymptomatic). Last screening mammogram was performed 12 month(s) ago. Patient History: Menarche at age 11. First Full-Term at age 22. Premenopausal. Patient has history of breast feeding. Hormonal Contraceptives, from age 14 until age 31. Last menstrual period: 05/14/2024 Risk Values: Lizbet 5 year model risk: 0.7%. NCI Lifetime model risk: 9.6%. Prior Study Comparison: 04/22/2022 Bilateral MG screening mammo w CAD, [facility]. 05/12/2023 Bilateral MG screening mammo w CAD, [facility]. 05/19/2023 Left MG 3D work up w/cad LT, [facility]. Tissue Density: The breasts are heterogeneously dense, which may obscure small masses. Findings: Analyzed By CAD. There is no suspicious group of microcalcifications or new suspicious mass in either breast. Overall Assessment: Negative, BI-RAD 1 Management: Screening Mammogram of both breasts in 1 year. . Patient should continue monthly self-breast exams. A clinical breast exam by your physician is recommended on an annual basis. This exam should not preclude additional follow-up of suspicious palpable abnormalities. Note on Lizbet scores and lifetime risk: 1. A Lizbet score greater than 3% is considered moderate risk. If this is the case, consider specialist referral to assess eligibility for a risk reducing agent. 2. If overall lifetime risk for the development of breast cancer is 20% or higher, the patient may qualify for future screening with alternating mammogram and breast MRI. Electronically signed and approved by: Suhail Mae M.D. Radiologis
== END | disposition home or self-care (01) ==
LOC: RADMAMWWP 16:26
PROVIDERS: ATTEND Family Medicine
DX: Z12.31 Encounter for screening mammogram for malignant neoplasm of breast
CPT/HCPCS: 77067

== ENCOUNTER 2025-01-06 23:18 | Inpatient (IN) | payer BC ==
--- NOTE | 2025-01-06 23:47 | ED ---
Psych HPI - General Chief Complaint: Psychiatric Symptoms Stated Complaint: Suicidal thoughts/hallucinations Time Seen by Provider: 01/06/25 23:19 Source: patient, family, RN notes reviewed, old records reviewed Mode of arrival: ambulatory Limitations: no limitations - History of Present Illness Initial Comments: This is a 44-year-old female who presents with word salad, patient is significantly focused on paranoia with thoughts of homicide and suicide concern for also a feeling of her killing her, patient has history of psychiatric illness and presents for psychiatric evaluation antonina BENOIT Complaint: suicidal ideation, feels depressed, altered mental status -: unknown Associated Psychiatric Symptoms: depression, suicidal ideation History of same: Yes Quality: constant, getting worse Improves With: none Worsens With: none Context: significant life stressor Associated Symptoms: denies other symptoms Treatments Prior to Arrival: placed on mental health hold If Self Harm: admits thoughts of self harm - Related Data Home Medications Medication Instructions Recorded Confirmed Cetirizine HCl [Zyrtec] 10 mg PO DAILY 03/15/17 06/02/18 Cholecalciferol [Vitamin D3 (25 1,000 unit PO DAILY 03/15/17 06/02/18 Mcg = 1000 Iu)] Oxybutynin ER [Ditropan XL] 30 mg PO DAILY 03/15/17 06/02/18 Vitamin B Complex 1 cap PO DAILY 03/15/17 06/02/18 Fluticasone Nasal [place] [Flonase 1 spray EA NOSTRIL DAILY 06/02/18 06/02/18 Nasal [place]] Multivitamins, Thera [Multivitamin 1 tab PO DAILY 06/02/18 06/02/18 (formulary)] Previous Rx's Medication Instructions Recorded Cephalexin [Keflex] 500 mg PO Q6HR #40 cap 06/05/18 Fluconazole [Diflucan] 100 mg PO DAILY 7 Days #7 tab 06/06/18 Cephalexin [Keflex] 500 mg PO BID #14 cap 05/13/19 Allergies Allergy/AdvReac Type Severity Reaction Status Date / Time cat dander Allergy Unknown Verified 01/06/25 23:28 ragweed pollen Allergy Unknown Verified 01/06/25 23:28 Review of Systems ROS Statement: Those systems with pertinent positive or pertinent negative responses have been documented in the HPI. ROS Other: All systems not noted in ROS Statement are negative. Past Medical History Past Medical History: Asthma Additional Past Medical History / Comment(s): overactive bladder, and,depression,"allergy induced asthma-uses inhalors,"heartburn", hpv-had cryo sx History of Any Multi-Drug Resistant Organisms: None Reported Past Surgical History: No Surgical Hx Reported Additional Past Surgical History / Comment(s): cryo sx for hpv Additional Past Anesthesia/Blood Transfusion Reaction / Comment(s): pt is jehova witness. has a pt advocate form on file but stated she needs to change and update it.at time of this admit pt stated "she wishes no blood or blood products which is different from her form"" Past Psychological History: Anxiety, Depression Past Alcohol Use History: None Reported Past Drug Use History: None Reported - Past Family History Mother Additional Family Medical History / Comment(s): schizophrenia, parkinsons Sister(s) Additional Family Medical History / Comment(s): overacative bladder Brother(s) Additional Family Medical History / Comment(s): bipolar Father Family Medical History: No Reported History General Exam General appearance: alert, in no apparent distress Head exam: Present: atraumatic, normocephalic, normal inspection Eye exam: Present: normal appearance, PERRL, EOMI. Absent: scleral icterus, conjunctival injection, periorbital swelling ENT exam: Present: normal exam, mucous membranes moist Neck exam: Present: normal inspection. Absent: tenderness, meningismus, ly mphadenopathy Respiratory exam: Present: normal lung sounds bilaterally. Absent: respiratory distress, wheezes, rales, rhonchi, stridor Cardiovascular Exam: Present: regular rate, normal rhythm, normal heart sounds. Absent: systolic murmur, diastolic murmur, rubs, gallop, clicks GI/Abdominal exam: Present: soft, normal bowel sounds. Absent: distended, tenderness, guarding, rebound, rigid Extremities exam: Present: normal inspection, full ROM, normal capillary refill. Absent: tenderness, pedal edema, joint swelling, calf tenderness Back exam: Present: normal inspection Neurological exam: Present: alert, oriented X3, CN II-XII intact Psychiatric exam: Present: normal affect, normal mood Skin exam: Present: warm, dry, intact, normal color. Absent: rash Course Vital Signs 01/06/25 23:23 Temperature 98 F Pulse Rate 113 H Respiratory 20 Rate Blood Pressure 168/80 O2 Sat by Pulse 98 Oximetry - Reevaluation(s) Reevaluation #1: 01/07/25 00:09 Medical records reviewed Reevaluation #2: 01/07/25 00:09 Medically cleared for psychiatric evaluation Reevaluation #3: Differential Mental Health Depression, anxiety, bipolar, psychosis, schizophrenia, borderline personality, situational depression, adjustment disorder, behavioral disorder, brain tumor, malingering, substance abuse, encephalopathy, medication reaction, dementia, hypothyroidism, degenerative neurologic disorder, lupus.... This is not meant to be all-inclusive list Disposition Clinical Impression: Psychosis, Acute psychosis, Adjustment reaction of adult life, Depression, Suicidal ideation, Acute anxiety Disposition: TRANSFER TO PSYCH HOSP/UNIT Condition: Fair Is patient prescribed a controlled substance at d/c from ED?: No Referrals: Nonstaff,Physician [Primary Care Provider] - 1-2 days
[2025-01-07] MEDS: LORazepam 1 MG TAB PO STA (01:14)
[2025-01-07 02:41] LABS: Amphetamine Screen,Urine Not Detected (NotDetected); Barbiturate Screen,Urine Not Detected (NotDetected); Benzodiazepines Screen,Urine Not Detected (NotDetected); Cocaine Screen,Urine Not Detected (NotDetected); Methadone Screen, Urine Not Detected (NotDetected); Opiate Screen,Urine Not Detected (NotDetected); Oxycodone Screen, Urine Not Detected (NotDetected); Phencyclidine Screen,Urine Not Detected (NotDetected); Tricyclic Antidepressant,Urine Not Detected (NotDetected); Urn Cannabinoid Scrn Not Detected (NotDetected)
[2025-01-07] MEDS: LORazepam 2 MG/ML INJ IV STA (02:47)
[2025-01-07] MEDS ORDERED: LORazepam 2 MG/ML INJ IM PRN (07:12)
[2025-01-07] MEDS ORDERED: LORazepam 1 MG TAB PO PRN (07:12)
[2025-01-07] MEDS ORDERED: OLANZapine 10 MG VIAL IM PRN (07:12)
[2025-01-07] MEDS ORDERED: MAGNESIUM HYDROXIDE 2,400 MG/30 ML CUP PO PRN (07:12)
[2025-01-07] MEDS ORDERED: OLANZapine ODT 5 MG TAB PO PRN (07:14)
[2025-01-07] MEDS: NICOTINE 14MG/24HR PATCH TRANSDERM SCH (10:04)
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
[2025-01-07] MEDS: VENLAFAXINE HCL ER 150 MG CAP PO SCH (14:00)
[2025-01-07] MEDS: OXYBUTYNIN 15 MG TAB.ER.24 PO SCH (14:00)
[2025-01-07] MEDS: MONTELUKAST 10 MG TAB PO SCH (14:00)
[2025-01-07] MEDS: NON FORMULARY DRUG (Clindamycin Gel 1 APPLIC Gel) TOPICAL SCH (14:01)
[2025-01-07] MEDS: lamoTRIgine 25 MG TAB PO SCH (20:16)
[2025-01-07] MEDS: QUEtiapine 100 MG TAB PO SCH (20:16)
--- NOTE | 2025-01-08 02:18 | P.MDCNMH ---
History of Present Illness H&P Date: 01/08/25 44 year old female with hypothyroid presented for mental health evaluation currently she denies any suicidal ideation denies any fevers chills coughing sore throat chest pain nausea vomiting abdominal pain Patient denies tobacco smoking denies alcohol abuse review of systems Pertinent positives as noted in HPI. All other systems were reviewed and are negative on exam Constitutional: No acute distress, conversant, pleasant Eyes: Anicteric sclerae, moist conjunctiva, Pupils equal round reactive to light Neck: Supple, no masses, or JVD No carotid bruits No thyromegaly Lungs: Clear to auscultation Clear to percussion Normal respiratory effort, no accessory muscle use Cardiovascular: Heart regular in rate and rhythm, No murmurs, gallops, or rubs No peripheral edema Abdominal: Soft Nontender, no guarding, rebound or rigidity Abdomen moving with respiration Extremities: No digital cyanosis No clubbing Pedal pulses intact and symmetrical Radial pulses intact and symmetrical No calf tenderness Psychiatric: Alert and oriented to person, place and time Neuro Muscles Strength 5/5 in all 4 extremities Sensation to light touch grossly present throughout Cranial nerves II-XII grossly intact Assessment and plan paranoid and delusional management per psych no blood work available fro review urine drug screen negative Thank you for this consultation Past Medical History Past Medical History: Asthma Additional Past Medical History / Comment(s): overactive bladder, and,depression,"allergy induced asthma-uses inhalors,"heartburn", hpv-had cryo sx History of Any Multi-Drug Resistant Organisms: None Reported Past Surgical History: No Surgical Hx Reported Additional Past Surgical History / Comment(s): cryo sx for hpv Additional Past Anesthesia/Blood Transfusion Reaction / Comment(s): pt is jehova witness. has a pt advocate form on file but stated she needs to change and update it.at time of this admit pt stated "she wishes no blood or blood products which is different from her form"" Smoking Status: Never smoker - Past Family History Mother Additional Family Medical History / Comment(s): schizophrenia, parkinsons Sister(s) Additional Family Medical History / Comment(s): overacative bladder Brother(s) Additional Family Medical History / Comment(s): bipolar Father Family Medical History: No Reported History Medications and Allergies Home Medications Medication Instructions Recorded Confirmed Type Oxybutynin ER [Ditropan XL] 30 mg PO DAILY 03/15/17 01/07/25 History Clindamycin Gel [Cleocin T 1% Gel] 1 applic TOPICAL DAILY 01/07/25 01/07/25 History Montelukast [Singulair] 10 mg PO DAILY 01/07/25 01/07/25 History Venlafaxine HCl ER [Effexor Xr] 150 mg PO DAILY 01/07/25 01/07/25 History lamoTRIgine [LaMICtal] 75 mg PO HS 01/07/25 01/07/25 History Allergies Allergy/AdvReac Type Severity Reaction Status Date / Time cat dander Allergy Unknown Verified 01/07/25 08:13 ragweed pollen Allergy Unknown Verified 01/07/25 08:13 Physical Exam Vitals: Vital Signs Temp Pulse Pulse Resp BP BP Pulse Ox 01/07/25 21:00 97.8 F 109 H 16 127/79 99 01/07/25 09:21 97.4 F L 91 16 122/67 100 01/07/25 08:33 18 01/07/25 06:37 98.0 F 99 18 137/90 99 Intake and Output 01/07/25 01/07/25 01/08/25 14:59 22:59 06:59 Other: Weight 77.7 kg 77.7 kg Cranial Nerve Examination - Cranial Nerves Cranial Nerve II- Optic: Intact Cranial Nerve III- Oculomotor: Intact Cranial Nerve IV- Trochlear: Intact Cranial Nerve V- Trigeminal: Intact Cranial Nerve - Abducens: Intact Cranial Nerve VII- Facial: Intact Cranial Nerve VIII- Auditory: Intact Cranial Nerve IX- Glossopharyngeal: Intact Cranial Nerve X- Vagus: Intact Cranial Nerve XI- Accessory: Intact Cranial Nerve XII- Hypoglossal: Intact
[2025-01-08 09:19] LABS: Basophils # (A) 0.03 10*3/uL (0.00-0.10); Basophils % (A) 0.5 %; Eosinophils # (A) 0.05 10*3/uL (0.04-0.35); Eosinophils % (A) 0.9 %; Lymphocytes # (A) 1.71 10*3/uL (0.90-5.00); Lymphocytes % (A) 30.3 %; MCH 29.3 pg (27.0-32.0); MCHC 33.3 g/dL (32.0-37.0); MCV 87.8 fL (80.0-97.0); Mean Platelet Volume 10.1 fL (9.5-12.2); Monocytes % (A) 7.1 %; Neutrophils # (A) 3.45 10*3/uL (1.80-7.70); Neutrophils % (A) 61.2 %; Platelet Count 326 10*3/uL (140-440); WBC 5.64 10*3/uL (4.50-10.00)
[2025-01-08 09:35] LABS: ALT 18 U/L (4-34); AST 28 U/L (14-36); African American GFR (CKD) >90 (>60 ml/min/1.73 sqM); Albumin 4.5 g/dL (3.5-5.0); Alkaline Phosphatase 64 U/L (38-126); Anion Gap 12 mmol/L; Bilirubin, Delta 0.1 mg/dL (0.0-0.2); Blood Urea Nitrogen 5 mg/dL (7-17); Calcium 9.1 mg/dL (8.4-10.2); Carbon Dioxide 26 mmol/L (22-30); Chloride 103 mmol/L (98-107); Glucose 109 mg/dL (74-99); Non-African American GFR(CKD) 85 (>60 ml/min/1.73 sqM); Potassium 3.7 mmol/L (3.5-5.1); Sodium 141 mmol/L (137-145); Total Bilirubin 1.1 mg/dL (0.2-1.3); Total Protein 7.2 g/dL (6.3-8.2)
[2025-01-08] MEDS: LORATADINE-PSEUDOEPH 5-120 MG 1 EACH TAB.ER.12H PO PRN (12:45)
--- NOTE | 2025-01-08 13:13 | P.PN ---
Progress Note - Text Progress Note Date: 01/08/25 Interval History: Patient was seen wandering the hallways and was directable and agreeable to sp eak with typewriter mechanic in the office. Patient did appear elevated in mood, she handed typewriter mechanic a list of contact information with her job which includes financial stressors as she is the sole provider of her 2 children and the importance of her maintaining this employment. 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 Patient continues to express paranoia, feeling as though her brother's girlfriend might have been involved in his suicide, feeling as though this was not a suicide and that she might have killed him. She states having both a psychiatrist and therapist at [facility] and she was encouraged to consider grief counseling given the recent loss of her brother. She was goal oriented today. Reports improvement in sleep with some residual grogginess in the morning. At this time patient denies any suicidal or homicidal ideations, intent or plan. Patient denies any auditory, visual hallucinations. Patient denies any side effects from the medications and has been compliant with meds. Mental Status Exam: General Appearance: Patient appears to be stated age is alert, directable, and cooperative. Behavior: Patient is calmly seated without any agitated behavior. Speech: Patient's speech is fluent and talkative Mood/Affect: Mood is improving mildly, affect is congruent and expansive. Suicidality/Homicidality: Patient denies having any suicidal or homicidal ideation intent or plan. Perceptions: Patient denies any visual hallucinations and denies any auditory hallucinations Though content/process: There is evidence of paranoid delusions, patient was goal oriented today Memory and concentration: AOX3, grossly intact for the purposes of this session Judgment and insight: Improving mildly Assessment Adjustment disorder with mixed disturbance of emotions and conduct Rule out bipolar disorder Generalized anxiety disorder Plan: -Patient continues to meet criteria for inpatient psychiatric admission for symptom stabilization and safety. Patient has not signed adult voluntary form and medication consent and was placed in patient's chart. -Medications: Increase Seroquel to 150 mg at bedtime for psychosis/sleep, continue Lamictal 75 mg daily for mood stabilization, Effexor XR 150 mg daily for depression/anxiety -When necessary Ativan and Zyprexa for agitation/aggression. -Labs: Grossly WNL -SW on board for discharge planning. Encouraged the patient to participate in milieu. Currently awaiting deferral with county attorney and court date.
[2025-01-08 15:15] LABS: Chol/HDL Ratio 3.45 Ratio; LDL Cholesterol,Calculated 110.9 mg/dL (0.0-131.0)
[2025-01-08] MEDS: QUEtiapine 100 MG TAB PO SCH (20:06)
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
[2025-01-09] MEDS: ARIPiprazole 15 MG TAB PO SCH (12:21)
[2025-01-09] MEDS: traZODone HCL 50 MG TAB PO PRN (23:55)
[2025-01-10] MEDS: ACETAMINOPHEN TAB 325 MG TAB PO PRN (06:04)
[2025-01-10] MEDS: MAG HYDROX/AL HYDROX/SIMETH 355 ML BOTTLE PO PRN (08:54)
[2025-01-10] MEDS: ARIPiprazole 5 MG TAB PO ONE (11:57)
--- NOTE | 2025-01-10 12:52 | P.PN ---
Progress Note - Text Progress Note Date: 01/10/25 Interval History: Patient was seen wandering the hallways and was directable and agreeable to sp tristian with field underwriter in the office. Patient reports feeling more clear since switching medications, denying any grogginess and improvements in dry mouth. She does admit to poor sleep overnight and did take as needed trazodone and was agreeable with increasing this medication tonight. She was goal oriented, talked about her desire to return to work and pay her bills. She did not display any paranoia today, less fixated on her brother's passing being a homicide. She inquires about her diagnosis and treatment plan. At this time patient denies any suicidal or homicidal ideations, intent or plan. Patient denies any auditory, visual hallucinations and denies any paranoia or delusions. Patient denies any side effects from the medications and has been compliant with meds. Mental Status Exam: General Appearance: Patient appears to be stated age is alert, directable, and cooperative. Behavior: Patient is calmly seated without any agitated behavior. Speech: Patient's speech is fluent and talkative, interruptible Mood/Affect: Mood is improving mildly, affect is congruent and constricted. Suicidality/Homicidality: Patient denies having any suicidal or homicidal ideation intent or plan. Perceptions: Patient denies any visual hallucinations and denies any auditory hallucinations Though content/process: There is no evidence of any delusional thought content and thought process is linear and goal-directed. Memory and concentration: AOX3, grossly intact for the purposes of this session Judgment and insight: Improving mildly Assessment Adjustment disorder with mixed disturbance of emotions and conduct Rule out bipolar disorder Generalized anxiety disorder Plan: -Patient continues to meet criteria for inpatient psychiatric admission for symptom stabilization and safety. Patient has not signed adult voluntary form and medication consent and was placed in patient's chart. -Medications: Increase Abilify to 20 mg daily for psychosis, continue Lamictal 75 mg daily for mood stabilization, Effexor XR 150 mg daily for depression/anxiety -When necessary Ativan and Zyprexa for agitation/aggression. -Labs: Grossly WNL -SW on board for discharge planning. Encouraged the patient to participate in milieu. Patient signed deferral yesterday. Anticipate discharge back home tomorrow.
[2025-01-10] MEDS: traZODone HCL 100 MG TAB PO SCH (20:08)
[2025-01-10] MEDS ORDERED: traZODone HCL 50 MG TAB PO SCH (21:00)
[2025-01-10] MEDS: IBUPROFEN 600 MG TAB PO PRN (22:37)
[2025-01-11 10:26] VITALS: BP 109/77; PULSE 94; RESP 16; TEMP 97.4
--- NOTE | 2025-01-11 12:53 | P.DS ---
Providers Date of admission: 01/07/25 06:34 Expected date of discharge: 01/11/25 Attending physician: Clara Pino MD Consults: 01/07/25 07:12 Consult Physician Routine Consulting Provider: Lola Dwyer Consult Reason/Comments: Medical H&P Do you want consulting provider notified?: Yes Primary care physician: Amanda Nathan - Discharge Diagnosis(es) (1) Adjustment disorder with mixed disturbance of emotions and conduct Current Visit: Yes Status: Acute Priority: High (2) Generalized anxiety disorder Current Visit: Yes Status: Acute Priority: Medium Hospital Course: Admission HPI: Admission note was completed by Dr. Ortega "Patient presented to the hospital under certificate due to paranoid behavior. Patient does have a history of depression as well as anxiety. The patient currently had a life altering event last Martin her brother committed suicide. It is noted after this she started suffering from sleep deprivation. The patient had expressed that she feels that her brother's girlfriend "stage the suicide". She feels that she is after all of his assets. She notes that she is probably after her "family". She feels that she is unsafe. She notes that she is only sleeping 3 to 6 hours at night. She notes that her energy goes from low to high. She notes that she has racing thoughts and mood swings. She notes that her appetite fluctuates. She notes that she struggles with concentration. She feels that her depression is low and her anxiety is moderate. She describes her grief as severe. After the suicide the patient did visit the side of the suicide where there was still blood in brains on the floor. She notes that she is struggling with any feelings towards this. She denies any nightmares, flashbacks or hypervigilant behavior. Patient denies any suicidal or homicidal ideations intent or plan. At this time patient denies any auditory or visual hallucinations. 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 She notes that over 2 days period the patient had not gotten any sleep. He notes that the patient had expressed thoughts towards the brother's girlfriend. He notes that these are false. He notes that she just heard something and automatically stimulated it. Review of systems was negative for OCD or PTSD. " Hospital course: Upon admission to the unit patient was admitted involuntarily on a petition and certificate and a second certificate was completed and faxed to the courts. Patient ended up signing a deferral with the ip attorney and agreeing to treatment.. Patient got along well with other patients on the unit and followed unit protocol. Patient was compliant with the medications and denied any side effects throughout hospital course. Patient was started on Seroquel however due to adverse effects this was discontinued and she was started instead on Abilify and this was increased to 20 mg daily for psychosis, Lamictal 75 mg daily for mood stabilization, Effexor XR 150 mg daily for depression/anxiety. Patient spoke of her stressors and engaged in therapy both group and individual. Patient was also seen by medical team for history and physical exam. Throughout the course of the hospitalization patient gradually improved with regards to mood, anxiety, sleep and returned back to their baseline level of functioning. On the day of discharge patient denied any suicidal or homicidal ideations intent or plan denied any auditory or visual hallucinations. The patient denied any access to guns or weapons. Patient did demonstrate mild paranoia however less intense and less fixation than initial encounter. She did not endorse any delusions. Patient does not have a significant history of substance abuse and was counseled on abstaining from all substances including alcohol and marijuana. Patient was also counseled on the medications and need for regular compliance and was encouraged to follow-up with their outpatient appointment for mental health and also for primary care. Patient to be discharged back home with her family and will follow-up with [facility]. Mental status exam: General Appearance: Patient appears to be stated age is alert, pleasant, and cooperative. Patient is in no acute distress and has fair hygiene and grooming. She wears glasses Behavior: Patient is calmly seated without any agitated behavior. Speech: Patient's speech is fluent and nonpressured. Mood/Affect: Patient reports their mood is "good", affect is congruent and euthymic. Suicidality/Homicidality: Patient denies having any suicidal or homicidal ideation intent or plan. Perceptions: Patient denies any auditory or visual hallucinations. Though content/process: There is no evidence of any delusional thought content and thought process is linear and goal-directed. Paranoia exhibited however less intense than initial encounter Memory and concentration: AOX3, grossly intact for the purposes of this session. Can spell "WORLD" backwards correctly. Judgment and insight: Good Impression: Adjustment disorder with mixed disturbance of emotions and conduct Rule out bipolar disorder Generalized anxiety disorder Plan: -Continue with discharge today as patient has improved and stabilized psychiatrically and is not currently an imminent threat to themself and/or others. -Continue medications: Abilify 20 mg daily, Lamictal 75 mg daily, Effexor XR 150 mg daily -Patient was counseled on the need for medication compliance and appropriate follow-up at mental health and also primary care for medical issues. Patient verbalized understanding and agreed. -Social work to help coordinate patients discharge today. also to ensure safe home environment that guns/weapons are either removed from the home or locked away. Social work also to arrange for patients follow up appointments with [facility] for psychiatric care along with follow up with primary care provider. -Patient counseled on abstaining from recreational drugs and marijuana and alcohol. Was informed/educated on the adverse effects on their physical and mental health. Patient verbally agreed and understood. -Patient was instructed to return to the hospital or seek immediate medical care if their psychiatric or medical symptoms do worsen or reoccur. Abnormal Labs 01/08/25 01/08/25 08:51 08:51 Hct 36.0 L BUN 5 L Glucose 109 H Allergies Allergy/AdvReac Type Severity Reaction Status Date / Time cat dander Allergy Unknown Verified 01/07/25 08:13 ragweed pollen Allergy Unknown Verified 01/07/25 08:13 Vital Signs Temp 97.4 F L 01/11/25 09:00 Pulse 94 01/11/25 09:00 Resp 16 01/11/25 09:00 BP 109/77 01/11/25 09:00 Pulse Ox 98 01/11/25 09:00 FiO2 Patient Condition at Discharge: Stable Plan - Discharge Summary Discharge Rx Participant: Yes New Discharge Prescriptions: New Loratadine-Pseudoeph 5-120 mg [Claritin-D 12 Hour] 1 each PO Q12HR PRN 30 Days #30 tab PRN Reason: Allergy Symptoms traZODone HCL [Desyrel] 100 mg PO HS 30 Days #30 tab ARIPiprazole [Abilify] 20 mg PO DAILY 30 Days #30 tab Continue Oxybutynin ER [Ditropan XL] 30 mg PO DAILY 30 Days #60 tab Venlafaxine HCl ER [Effexor XR] 150 mg PO DAILY 30 Days #30 cap lamoTRIgine [LaMICtal] 75 mg PO HS 30 Days #90 tab Montelukast [Singulair] 10 mg PO DAILY 30 Days #30 tab Discontinued Clindamycin Gel [Cleocin T 1% Gel] 1 applic TOPICAL DAILY Discharge Medication List ARIPiprazole [Abilify] 20 mg PO DAILY 30 Days #30 tab 01/11/25 [Rx] Loratadine-Pseudoeph 5-120 mg [Claritin-D 12 Hour] 1 each PO Q12HR PRN 30 Days #30 tab 01/11/25 [Rx] Montelukast [Singulair] 10 mg PO DAILY 30 Days #30 tab 01/11/25 [Rx] Oxybutynin ER [Ditropan XL] 30 mg PO DAILY 30 Days #60 tab 01/11/25 [Rx] Venlafaxine HCl ER [Effexor XR] 150 mg PO DAILY 30 Days #30 cap 01/11/25 [Rx] lamoTRIgine [LaMICtal] 75 mg PO HS 30 Days #90 tab 01/11/25 [Rx] traZODone HCL [Desyrel] 100 mg PO HS 30 Days #30 tab 01/11/25 [Rx] Follow up Appointment(s)/Referral(s): [facility], Med [Other] - [facility]Outside] - 01/16/25 9:30 am (01/16 @ 09:30 paperwork 01/16 10:00-11:00 appt with therapist Maira Please bring id and insurance cards) Patient Instructions/Handouts: Depression (DC), Anxiety (ED) Activity/Diet/Wound Care/Special Instructions: Avoid the use of street drugs and alcohol. Take all medications as prescribed. When you are in need of refills on your medications, please contact your medical provider and/or outpatient psychiatrist/provider to have this done. Please go to your scheduled outpatient appointment for aftercare treatment. If symptoms return or become worse, call the crisis line at and/or go to the nearest emergency room for evaluation. National Suicide Hotline [facility] confidentiality statement: "The information contained in this communication, including attachments, is confidential, may be privileged, and is intended only for the use of the named recipient(s). Unauthorized use, disclosure, forwarding or copying is strictly prohibited and may be unlawful. If you have received this communication in error, please notify me IMMEDIATELY at the phone number or pager listed above. Discharge Disposition: HOME SELF-CARE
== END 2025-01-11 13:35 | disposition home or self-care (01) | DRG 882 ==
LOC: EC 23:18 → 3MHU 01-07 06:34
PROVIDERS: ADMIT Psychiatry & Neurology Psychiatry; ATTEND Psychiatry & Neurology Psychiatry
DX: F43.25 Adjustment disorder with mixed disturbance of emotions and conduct (principal); F30.2 Manic episode, severe with psychotic symptoms; E03.9 Hypothyroidism, unspecified; J45.909 Unspecified asthma, uncomplicated; F23 Brief psychotic disorder; F41.1 Generalized anxiety disorder; N32.81 Overactive bladder; Z62.810 Personal history of physical and sexual abuse in childhood; Z63.4 Disappearance and death of family member; Z72.820 Sleep deprivation; Z79.899 Other long term (current) drug therapy
CPT/HCPCS: 80053; 80061; 80306; 82075; 82248; 83036; 84443; 85025; 87635; 99285